=== PATIENT | female | born 1945 | race Caucasian/White ===

== ENCOUNTER 2019-09-07 16:51 | Inpatient (IN) | payer MEDICARE, OTHER ==
[~2019-09-07] VITALS: Ht 157.5 cm; Wt 112.5 kg
[~2019-09-07 16:51] MED LIST: ALBU2.5V8 INH; AMLO5TAB10 PO; BRIM5DRO2 OP; CALC-98 PO; CEPH500C PO; DORZ10DR6 EACHEYE; FURO80TA3 PO; GLUC1CAP48 PO; INSU100C SQ; INSU100I13 SQ; IPRA3AMP29 NEB; LISI10TA2 PO; METR45CR2 TP; MULT-658 PO; POTA20TA4 PO; TAFL1DRO OP; [UNRECOGNIZED DRUG - CODE] TP
--- NOTE | 2019-09-07 17:17 | PHYS DOC ---
Past Medical History Past Medical History: Asthma, Diabetes-Type II Additional Past Medical Histor: guillian-barre syndrome,retinopathy,skin ca, ercp,ITP (CANDIDO STEVENS APRN) Past Surgical History: Cholecystectomy, , Other Additional Past Surgical Histo: adenocarcinoma of endometrium,l knee,liver bx, (CANDIDO STEVENS APRN) Alcohol Use: None Drug Use: None (CANDIDO STEVENS APRN) Adult General Chief Complaint Chief Complaint: MECHANICAL FALL HPI HPI Patient is a 74 year old female who presents with with body aches, generalized weakness, and a fall that happened around 4:30 PM today. She states that her bilateral legs just gave out and she fell she's states that nothing hurts in the fall. She is worried that she might possibly have a urinary tract infection. She rates her pain as 3 out of 10 in severity. (CANDIDO STEVENS APRN) Review of Systems Review of Systems Constitutional: Reports hot and cold chills and generalized weakness. Eyes: Denies change in visual acuity, redness, or eye pain [] HENT: Denies nasal congestion or sore throat [] Respiratory: Denies cough or shortness of breath [] Cardiovascular: No additional information not addressed in HPI [] GI: Denies abdominal pain, nausea, vomiting, bloody stools or diarrhea [] : Denies dysuria or hematuria [] Musculoskeletal: Denies back pain or joint pain [] Integument: Denies rash or skin lesions [] Neurologic: Denies headache, focal weakness or sensory changes [] Endocrine: Denies polyuria or polydipsia [] Complete systems were reviewed and found to be within normal limits, except as documented in this note. (CANDIDO STEVENS APRN) Current Medications Current Medications Current Medications Medications (Trade) Dose Ordered Sig/Naye Start Time Stop Time Status Last Admin Dose Admin Ceftriaxone Sodium (Rocephin) 1 gm 1X STAT 09/07/19 18:04 09/07/19 18:07 DC 09/07/19 18:31 1 GM (PAULINE DOUGLAS MD) Allergies Allergies Allergies Coded Allergies Type Severity Reaction Last Updated Verified No Known Drug Allergies 04/28/18 No (PAULINE DOUGLAS MD) Physical Exam Physical Exam Constitutional: Well developed, well nourished, no acute distress, non-toxic appearance. [] HENT: Normocephalic, atraumatic, bilateral external ears normal, oropharynx moist, no oral exudates, nose normal. [] Eyes: PERRLA, EOMI, conjunctiva normal, no discharge. [] Neck: Normal range of motion, no tenderness, supple, no stridor. [] Cardiovascular:Heart rate regular rhythm, no murmur [] Lungs & Thorax: Bilateral breath sounds clear to auscultation [] Abdomen: Bowel sounds normal, soft, no tenderness, no masses, no pulsatile ma sses. [] Skin: Warm, dry, no erythema, no rash. [] Back: No tenderness, no CVA tenderness. [] Extremities: No tenderness, no cyanosis, no clubbing, ROM intact, no edema. [] Neurologic: Alert and oriented X 3, normal motor function, normal sensory function, no focal deficits noted. [] Psychologic: Affect normal, judgement normal, mood normal. [] (CANDIDO STEVENS APRN) Current Patient Data Vital Signs Vital Signs Date Time Temp Pulse Resp B/P (MAP) Pulse Ox O2 Delivery O2 Flow Rate FiO2 09/07/19 16:51 99.2 86 18 137/64 (88) 94 Room Air 99.2 (PAULINE DOUGLAS MD) Lab Values Laboratory Tests Test 09/07/19 16:54 09/07/19 17:01 09/07/19 17:38 Glucose (Fingerstick) 271 mg/dL (70-99) H Urine Collection Type U cath Urine Color [place] Urine Clarity Cloudy Urine pH 5.5 Urine Specific [place] 1.025 Urine Protein 100 mg/dL (NEG-TRACE) Urine Glucose (UA) Negative mg/dL (NEG) Urine Ketones (Stick) Trace mg/dL (NEG) Urine Blood Moderate (NEG) Urine Nitrite Negative (NEG) Urine Bilirubin Small (NEG) Urine Urobilinogen Dipstick 1.0 mg/dL (0.2 mg/dL) Urine Leukocyte Esterase Large (NEG) Urine RBC 3-5 /HPF (0-2) Urine WBC >40 /HPF (0-4) Urine Squamous Epithelial Cells Few /LPF Urine Bacteria Many /HPF (0-FEW) Urine Hyaline Casts Moderate /HPF Urine Mucus Mod /LPF White Blood Count 12.4 x10^3/uL (4.0-11.0) H Red Blood Count 5.03 x10^6/uL (3.50-5.40) Hemoglobin 13.7 g/dL (12.0-15.5) Hematocrit 42.1 % (36.0-47.0) Mean Corpuscular Volume 84 fL (79-100) Mean Corpuscular Hemoglobin 27 pg (25-35) Mean Corpuscular Hemoglobin Concent 33 g/dL (31-37) Red Cell Distribution Width 14.6 % (11.5-14.5) H Platelet Count 72 x10^3/uL (140-400) L Neutrophils (%) (Auto) 84 % (31-73) H Lymphocytes (%) (Auto) 10 % (24-48) L Monocytes (%) (Auto) 6 % (0-9) Eosinophils (%) (Auto) 0 % (0-3) Basophils (%) (Auto) 0 % (0-3) Neutrophils # (Auto) 10.4 x10^3/uL (1.8-7.7) H Lymphocytes # (Auto) 1.2 x10^3/uL (1.0-4.8) Monocytes # (Auto) 0.7 x10^3/uL (0.0-1.1) Eosinophils # (Auto) 0.0 x10^3/uL (0.0-0.7) Basophils # (Auto) 0.0 x10^3/uL (0.0-0.2) Sodium Level 136 mmol/L (136-145) Potassium Level 3.9 mmol/L (3.5-5.1) Chloride Level 98 mmol/L (98-107) Carbon Dioxide Level 30 mmol/L (21-32) Anion Gap 8 (6-14) Blood Urea Nitrogen 18 mg/dL (7-20) Creatinine 1.2 mg/dL (0.6-1.0) H Estimated GFR (Cockcroft-Gault) 43.8 BUN/Creatinine Ratio 15 (6-20) Glucose Level 275 mg/dL (70-99) H Lactic Acid Level 2.2 mmol/L (0.4-2.0) H Calcium Level 9.1 mg/dL (8.5-10.1) Magnesium Level 1.9 mg/dL (1.8-2.4) Total Bilirubin 1.5 mg/dL (0.2-1.0) H Aspartate Amino Transferase (AST) 12 U/L (15-37) L Alanine Aminotransferase (ALT) 13 U/L (14-59) L Alkaline Phosphatase 74 U/L (46-116) Total Protein 7.2 g/dL (6.4-8.2) Albumin 3.3 g/dL (3.4-5.0) L Albumin/Globulin Ratio 0.8 (1.0-1.7) L Laboratory Tests 09/07/19 17:38 Laboratory Tests 09/07/19 17:38 (PAULINE DOUGLAS MD) EKG EKG [] (CANDIDO STEVENS APRN) Radiology/Procedures Radiology/Procedures [][facility] [address] [place] [address] IMAGING REPORT Signed PATIENT: AMELIA LANGLEY ACCOUNT: [id number] : 1945 LOCATION: ER AGE: 74 SEX: F EXAM STATUS: REG ER ORD. PHYSICIAN: CANDIDO STEVENS APRN REASON: fever PROCEDURE: PORTABLE CHEST 1V Single view chest dated 09/07/2019. Comparison made to 04/28/2018. Clinical data indication: Fever. FINDINGS: Single upright portable exam performed. Heart and mediastinal contours are stable. Lungs are clear. No consolidation or pleural effusion. No pneumothorax. IMPRESSION: No evidence of focal pneumonia. Electronically signed by: Candido Guzmán MD (09/07/2019 6:03 PM) [id number] DICTATED and SIGNED BY: CANDIDO GUZMÁN MD DATE: 09/07/19 1803 (CANDIDO STEVENS APRN) Course & Med Decision Making Course & Med Decision Making Pertinent Labs and Imaging studies reviewed. (See chart for details) Will get labs, and chest x-ray. Labs shows a WBC of 12,000, Chest x-ray is unremarkable. Urine shows leukocytes and bacteria. Will treat with Rocephin. Offered to send patient home on Keflex or to admit to hospital. Patient asked to be admitted to hospital as feels to weak to safely be at home. Will page Dr. Garza for admission. Discussed with Dr. Garza who accepts admission. (CANDIDO STEVENS APRN) Course & Med Decision Making I was not involved in the care of this patient after 1800 on 09/07/2019. (PAULINE DOUGLAS MD) Dragon Disclaimer Dragon Disclaimer This electronic medical record was generated, in whole or in part, using a voice recognition dictation system. (CANDIDO STEVENS APRN) Departure Departure Impression: Primary Impression: UTI (urinary tract infection) Additional Impression: Generalized weakness Disposition: 09 ADMITTED INPATIENT Admitting Physician: ADIA (CANDIDO STEVENS APRN) Condition: STABLE Referrals: MARCK WOODRUFF MD (PCP) Problem Qualifiers CANDIDO STEVENS APRN Sep 07, 2019 17:17 PAULINE DOUGLAS MD Sep 08, 2019 10:13
[2019-09-07 17:27] LABS: BILIRUBIN,URINE SMALL (NEG); CLARITY,URINE CLOUDY; COLOR,URINE AMBER; NITRITE,URINE NEGATIVE (NEG); PH,URINE 5.5; PROTEIN,URINE 100 mg/dL (NEG-TRACE)
[2019-09-07 17:51] LABS: BASO % 0 % (0-3); EOS % 0 % (0-3); HEMATOCRIT 42.1 % (36.0-47.0); HEMOGLOBIN 13.7 g/dL (12.0-15.5); LYMPH # 1.2 x10^3/uL (1.0-4.8); LYMPH % 10 % (24-48); MEAN CORPUSCULAR HEMOGLOBIN 27 pg (25-35); MEAN CORPUSCULAR HGB CONC 33 g/dL (31-37); MEAN CORPUSCULAR VOLUME 84 fL (79-100); MONO # 0.7 x10^3/uL (0.0-1.1); MONO % 6 % (0-9); NEUT # 10.4 x10^3/uL (1.8-7.7); NEUT % 84 % (31-73); PLATELET COUNT 72 x10^3/uL (140-400); RED BLOOD COUNT 5.03 x10^6/uL (3.50-5.40); RED CELL DISTRIBUTION WIDTH 14.6 % (11.5-14.5); WHITE BLOOD COUNT 12.4 x10^3/uL (4.0-11.0)
[2019-09-07 17:57] LABS: HYALINE CASTS, URINE MODERATE /HPF; SQUAMOUS EPITHELIAL CELL,UR FEW /LPF
[2019-09-07 17:58] LABS: BACTERIA,URINE MANY /HPF (0-FEW); WBC,URINE >40 /HPF (0-4)
[2019-09-07] MEDS ORDERED: cefTRIAXone IV Push 1 GM VIAL. IVP STA (18:04)
--- NOTE | 2019-09-07 18:06 | RAD ---
Single view chest dated 09/07/2019. Comparison made to 04/28/2018. Clinical data indication: Fever. FINDINGS: Single upright portable exam performed. Heart and mediastinal contours are stable. Lungs are clear. No consolidation or pleural effusion. No pneumothorax. IMPRESSION: No evidence of focal pneumonia. Electronically signed by: Candido Guzmán MD (09/07/2019 6:03 PM) [facility]
[2019-09-07 18:07] LABS: CALCIUM 9.1 mg/dL (8.5-10.1); CREATININE 1.2 mg/dL (0.6-1.0); GFR 43.8; POTASSIUM 3.9 mmol/L (3.5-5.1)
[2019-09-07 18:13] LABS: ALBUMIN 3.3 g/dL (3.4-5.0); ALBUMIN/GLOBULIN RATIO 0.8 (1.0-1.7); TOTAL BILIRUBIN 1.5 mg/dL (0.2-1.0); TOTAL PROTEIN 7.2 g/dL (6.4-8.2)
[2019-09-07] MEDS ORDERED: IV NORMAL SALINE 500ML BAG 500 ML IV STA ×2 (18:28→18:49)
[2019-09-07] MEDS ORDERED: ONDANSETRON PF 4 MG/2 ML VIAL. IV PRN (19:00)
--- NOTE | 2019-09-07 19:28 | PDOC1 ---
History and Physical Date of Admission Date of Admission DATE: 09/07/19 TIME: 19:21 Identification/Chief Complaint Chief Complaint falls, weak Source Source: Caregiver, Chart review, Patient History of Present Illness History of Present Illness PCP dr Xiao, lives at home with has a walker at home, has been falling and had a non injury fall at home today. INCidental UTI on work up hence admitted, WBC 12, dirty urine, non toxic appearing,a febrile, creat 1,2 the rest LAbs ok Agreeable to PT and IV abx and admission Full code TRIAGE NOTE:PT TO ED VIA [facility] TO ER ROOM 20. EMS STATES PT HAD FALL TODAY, NO INJURY NO LOC. PT STATES SHE WAS IN THE BATHROOM AND HER KNEES BUCKLED. EMS STATES PT HAS INCREASING CONFUSION ABOUT PT HISTORY. PT ALERT AND ORIENTED X4 BUT FORGETFUL. PT HAS HX OF UTI. EMS STATES BG OF 108, PT AMBULATED W/CANE. PT DENIES RECENT FALLS BESIDES TODAY. DENIES URINARY SXS of UTI Past Medical History Cardiovascular: HTN Pulmonary: Bronchitis, COPD Endocrine: Diabetes Past Surgical History Past Surgical History: No pertinent history Family History Family History: High Cholestrol, Hypertension Social History Smoke: No ALCOHOL: none Drugs: None Current Problem List Problem List Problems Medical Problems: (1) Generalized weakness Status: Acute Current Medications Current Medications Current Medications Ceftriaxone Sodium (Rocephin) 1 gm 1X STAT IVP Last administered on 09/07/19at 18:31; Start 09/07/19 at 18:04; Stop 09/07/19 at 18:07; Status DC Sodium Chloride 500 ml @ 500 mls/hr 1X STAT IV Last administered on 09/07/19at 18:35; Start 09/07/19 at 18:28; Stop 09/07/19 at 19:27 Ondansetron HCl (Zofran) 4 mg PRN Q8HRS PRN IV NAUSEA/VOMITING; Start 09/07/19 at 19:00; Stop 09/08/19 at 18:59 Sodium Chloride 500 ml @ 500 mls/hr 1X STAT IV ; Start 09/07/19 at 18:49; Stop 09/07/19 at 19:48 Active Scripts Active Reported Hair Regrowth Treatment (Minoxidil) 180 Ml Solution 180 Ml TP Metrocream (Metronidazole) 45 Gm Cream..g. 1 [place] TP BID Proair Hfa Inhaler (Albuterol Sulfate) 8.5 Gm Hfa.aer.ad 1 Puff INH PRN Q4-6HRS PRN Duoneb 0.5-3(2.5) Mg/3 Ml (Albuterol/Ipratropium) 3 Ml Ampul.neb 3 Ml NEB TID Glucosamine & Chondroitin Cap (Gluc 2KCL/Chondr/Isra Hy/Hy Ac) 1 Each Capsule Each PO BID Calcium + Vitamin D Tablet (Calcium Carbonate/Vitamin D3) 1 Each Tablet 1 Each PO BID Centrum Silver Tablet (Multivits-Min/Fa/Lycopene/Lut) 1 Each Tablet 1 Each PO Combigan Eye Drops (Brimonidine Tartrate/Timolol) 5 Ml Drops 5 Ml OP BID Dorzolamide Hcl 10 Ml Drops 1 Drop EACHEYE BID Zioptan 0.0015% Eye Drops (Tafluprost/Pf) 1 Each Droperette 1 Each OP Potassium Chloride 20 Meq Tablet.er 20 Meq PO BID Furosemide 80 Mg Tablet 1 Tab PO DAILY Humalog (Insulin Lispro) 100 Unit/1 Ml Cartridge 20 Unit SQ TIDWMEALS Lantus Solostar (Insulin Glargine,Hum.rec.anlog) 100 Unit/1 Ml Insuln.pen 50 Unit SQ DAILY08 Lisinopril 10 Mg Tablet 1 Tab PO BID Amlodipine Besylate 5 Mg Tablet 5 Mg PO DAILY Allergies Allergies: Coded Allergies: No Known Drug Allergies (Unverified , 04/28/18) ROS General: No: Chills, Night Sweats, Fatigue, Malaise, Appetite, Other PSYCHOLOGICAL ROS: No: Anxiety, Behavioral Disorder, Concentration difficultie, Decreased libido, Depression, Disorientation, Hallucinations, Hostility, Irritablity, Memory difficulties, Mood Swings, Obsessive thoughts, Physical abuse, Sexual abuse, Sleep disturbances, Suicidal ideation, Other Eyes: No Blurry vision, No Decreased vision, No Double vision, No Dry eyes, No Excessive tearing, No Eye Pain, No Itchy Eyes, No Loss of vision, No Photophobia, No Scotomata, No Uses contacts, No Uses glasses, No Other HEENT: No: Heacaches, Visual Changes, Hearing change, Nasal congestion, Nasal discharge, Oral lesions, Sinus pain, Sore Throat, Epistaxis, Sneezing, Snoring, Tinnitus, Vertigo, Vocal changes, Other ALLERGY AND IMMUNOLOGY: No: Hives, Insect Bite Sensitivity, Itchy/Watery Eyes, Nasal Congestion, Post Nasal Drip, Seasonal Allergies, Other Hematological and Lymphatic: No: Bleeding Problems, Blood Clots, Blood Transfusions, Brusing, Night Sweats, Pallor, Swollen Lymph Nodes, Other ENDOCRINE: No: Breast Changes, Galactorrhea, Hair Pattern Changes, Hot Flashes, Malaise/lethargy, Mood Swings, Palpitations, Polydipsia/polyuria, Skin Changes, Temperature Intolerance, Unexpected Weight Changes, Other Breast: No New/Changing Breast Lumps, No Nipple changes, No Nipple discharge, No Other Respiratory: No: Cough, Hemoptysis, Orthopnea, Pleuritic Pain, Shortness of breath, SOB with excertion, Sputum Changes, Stridor, Tachypnea, Wheezing, Other Cardiovascular: No Chest Pain, No Palpitations, No Orthopnea, No Paroxysmal Noc. Dyspnea, No Edema, No Lt Headedness, No Other Gastrointestinal: No Nausea, No Vomiting, No Abdominal Pain, No Diarrhea, No Constipation, No Melena, No Hematochezia, No Other Genitourinary: No Dysuria, No Frequency, No Incontinence, No Hematuria, No Retention, No Discharge, No Urgency, No Pain, No Flank Pain, No Other, No , No , No , No , No , No , No Musculoskeletal: Yes Other (wak general) Physical Exam General: Alert, Oriented X3, Cooperative, No acute distress HEENT: Atraumatic, PERRLA, EOMI Lungs: Clear to auscultation, Normal air movement Heart: S1S2, RRR, no thrills, no rubs, no gallops, no murmurs Cardiovascular: S1 Breasts: Normal, Rt breast nml w/o mass, Lt breast nml w/o mass, Nipples normal Abdomen: Normal bowel sounds, Soft, No tenderness, No hepatosplenomegaly, No masses Rectal Exam: not examined PELVIC: Nml ext genitalia Extremities: No clubbing, No cyanosis, No edema, Normal pulses, No tenderness/swelling Skin: No rashes, No breakdown, No significant lesion Neuro: Normal gait, Normal speech, Strength at 5/5 X4 ext, Normal tone, Sensation intact, Cranial nerves 3-12 NL, Reflexes 2+ Vitals Vitals Vital Signs Date Time Temp Pulse Resp B/P (MAP) Pulse Ox O2 Delivery O2 Flow Rate FiO2 09/07/19 16:51 99.2 86 18 137/64 (88) 94 Room Air 99.2 Labs Labs Laboratory Tests Test 09/07/19 16:54 09/07/19 17:01 09/07/19 17:38 Glucose (Fingerstick) 271 mg/dL (70-99) Urine Collection Type U cath Urine Color [place] Urine Clarity Cloudy Urine pH 5.5 Urine Specific [place] 1.025 Urine Protein 100 mg/dL (NEG-TRACE) Urine Glucose (UA) Negative mg/dL (NEG) Urine Ketones (Stick) Trace mg/dL (NEG) Urine Blood Moderate (NEG) Urine Nitrite Negative (NEG) Urine Bilirubin Small (NEG) Urine Urobilinogen Dipstick 1.0 mg/dL (0.2 mg/dL) Urine Leukocyte Esterase Large (NEG) Urine RBC 3-5 /HPF (0-2) Urine WBC >40 /HPF (0-4) Urine Squamous Epithelial Cells Few /LPF Urine Bacteria Many /HPF (0-FEW) Urine Hyaline Casts Moderate /HPF Urine Mucus Mod /LPF White Blood Count 12.4 x10^3/uL (4.0-11.0) Red Blood Count 5.03 x10^6/uL (3.50-5.40) Hemoglobin 13.7 g/dL (12.0-15.5) Hematocrit 42.1 % (36.0-47.0) Mean Corpuscular Volume 84 fL (79-100) Mean Corpuscular Hemoglobin 27 pg (25-35) Mean Corpuscular Hemoglobin Concent 33 g/dL (31-37) Red Cell Distribution Width 14.6 % (11.5-14.5) Platelet Count 72 x10^3/uL (140-400) Neutrophils (%) (Auto) 84 % (31-73) Lymphocytes (%) (Auto) 10 % (24-48) Monocytes (%) (Auto) 6 % (0-9) Eosinophils (%) (Auto) 0 % (0-3) Basophils (%) (Auto) 0 % (0-3) Neutrophils # (Auto) 10.4 x10^3/uL (1.8-7.7) Lymphocytes # (Auto) 1.2 x10^3/uL (1.0-4.8) Monocytes # (Auto) 0.7 x10^3/uL (0.0-1.1) Eosinophils # (Auto) 0.0 x10^3/uL (0.0-0.7) Basophils # (Auto) 0.0 x10^3/uL (0.0-0.2) Sodium Level 136 mmol/L (136-145) Potassium Level 3.9 mmol/L (3.5-5.1) Chloride Level 98 mmol/L (98-107) Carbon Dioxide Level 30 mmol/L (21-32) Anion Gap 8 (6-14) Blood Urea Nitrogen 18 mg/dL (7-20) Creatinine 1.2 mg/dL (0.6-1.0) Estimated GFR (Cockcroft-Gault) 43.8 BUN/Creatinine Ratio 15 (6-20) Glucose Level 275 mg/dL (70-99) Lactic Acid Level 2.2 mmol/L (0.4-2.0) Calcium Level 9.1 mg/dL (8.5-10.1) Magnesium Level 1.9 mg/dL (1.8-2.4) Total Bilirubin 1.5 mg/dL (0.2-1.0) Aspartate Amino Transf (AST/SGOT) 12 U/L (15-37) Alanine Aminotransferase (ALT/SGPT) 13 U/L (14-59) Alkaline Phosphatase 74 U/L (46-116) Total Protein 7.2 g/dL (6.4-8.2) Albumin 3.3 g/dL (3.4-5.0) Albumin/Globulin Ratio 0.8 (1.0-1.7) Laboratory Tests Test 09/07/19 16:54 09/07/19 17:01 09/07/19 17:38 Glucose (Fingerstick) 271 mg/dL (70-99) Urine Collection Type U cath Urine Color [place] Urine Clarity Cloudy Urine pH 5.5 Urine Specific [place] 1.025 Urine Protein 100 mg/dL (NEG-TRACE) Urine Glucose (UA) Negative mg/dL (NEG) Urine Ketones (Stick) Trace mg/dL (NEG) Urine Blood Moderate (NEG) Urine Nitrite Negative (NEG) Urine Bilirubin Small (NEG) Urine Urobilinogen Dipstick 1.0 mg/dL (0.2 mg/dL) Urine Leukocyte Esterase Large (NEG) Urine RBC 3-5 /HPF (0-2) Urine WBC >40 /HPF (0-4) Urine Squamous Epithelial Cells Few /LPF Urine Bacteria Many /HPF (0-FEW) Urine Hyaline Casts Moderate /HPF Urine Mucus Mod /LPF White Blood Count 12.4 x10^3/uL (4.0-11.0) Red Blood Count 5.03 x10^6/uL (3.50-5.40) Hemoglobin 13.7 g/dL (12.0-15.5) Hematocrit 42.1 % (36.0-47.0) Mean Corpuscular Volume 84 fL (79-100) Mean Corpuscular Hemoglobin 27 pg (25-35) Mean Corpuscular Hemoglobin Concent 33 g/dL (31-37) Red Cell Distribution Width 14.6 % (11.5-14.5) Platelet Count 72 x10^3/uL (140-400) Neutrophils (%) (Auto) 84 % (31-73) Lymphocytes (%) (Auto) 10 % (24-48) Monocytes (%) (Auto) 6 % (0-9) Eosinophils (%) (Auto) 0 % (0-3) Basophils (%) (Auto) 0 % (0-3) Neutrophils # (Auto) 10.4 x10^3/uL (1.8-7.7) Lymphocytes # (Auto) 1.2 x10^3/uL (1.0-4.8) Monocytes # (Auto) 0.7 x10^3/uL (0.0-1.1) Eosinophils # (Auto) 0.0 x10^3/uL (0.0-0.7) Basophils # (Auto) 0.0 x10^3/uL (0.0-0.2) Sodium Level 136 mmol/L (136-145) Potassium Level 3.9 mmol/L (3.5-5.1) Chloride Level 98 mmol/L (98-107) Carbon Dioxide Level 30 mmol/L (21-32) Anion Gap 8 (6-14) Blood Urea Nitrogen 18 mg/dL (7-20) Creatinine 1.2 mg/dL (0.6-1.0) Estimated GFR (Cockcroft-Gault) 43.8 BUN/Creatinine Ratio 15 (6-20) Glucose Level 275 mg/dL (70-99) Lactic Acid Level 2.2 mmol/L (0.4-2.0) Calcium Level 9.1 mg/dL (8.5-10.1) Magnesium Level 1.9 mg/dL (1.8-2.4) Total Bilirubin 1.5 mg/dL (0.2-1.0) Aspartate Amino Transf (AST/SGOT) 12 U/L (15-37) Alanine Aminotransferase (ALT/SGPT) 13 U/L (14-59) Alkaline Phosphatase 74 U/L (46-116) Total Protein 7.2 g/dL (6.4-8.2) Albumin 3.3 g/dL (3.4-5.0) Albumin/Globulin Ratio 0.8 (1.0-1.7) VTE Prophylaxis Ordered VTE Prophylaxis Devices: Yes VTE Pharmacological Prophylaxi: Yes Assessment/Plan Assessment/Plan incidental UTI in a Diabetic DM 2 on insuln Obesity BMI 45 GEn weakness NOn injury falls at home HTN, lidpis - etc chronci stable PLAn: NOn tele bed ok 2 MN Rocephin, urine cx, PT OT Check hgba1c SSI high dose I reconciled home emds Ambulate ad skye wth fall risk DM diet FULL CODE seen at ER RUY CABEZAS MD Sep 07, 2019 19:28
[2019-09-07] MEDS ORDERED: CALCIUM CARBONATE 500 MG TAB.CHEW PO PRN (19:30)
[2019-09-07] MEDS ORDERED: ONDANSETRON PF 4 MG/2 ML VIAL. IVP PRN (19:30)
[2019-09-07] MEDS ORDERED: ALBUTEROL SULFATE 2.5 MG/3 ML NEBU. INH PRN (19:30)
[2019-09-07] MEDS ORDERED: DEXTROSE 50% 25 GM / 50ML DISP.SYRIN. IV PRN (19:30)
[2019-09-07] MEDS ORDERED: TEMAZEPAM 7.5 MG CAPSULE PO PRN (19:30)
[2019-09-07 20:15] VITALS: BP 163/67
--- NOTE | 2019-09-07 20:15 | NUR ---
The patient, AMELIA LANGLEY, 74 y/o, F admitted by RUY CABEZAS MD, was given written information regarding hospital policies, unit procedures and contact persons. Valuables were checked and left with her.
[2019-09-07] MEDS ORDERED: NON FORMULARY ITEM (Brimonidine Tartrate/Timolol (Combigan Eye Drops) 5 ML) OP SCH (21:00)
[2019-09-07] MEDS ORDERED: metroNIDAZOLE 0.75% TOPICAL 1 APP TUBE TP SCH (21:00)
[2019-09-07] MEDS: IPRATRPIUM/ALBUTEROL 0.5/2.5MG 3 ML NEBU. NEB SCH (22:15)
[2019-09-07] MEDS: LISINOPRIL 10 MG TABLET PO SCH (22:42)
[2019-09-07] MEDS: BRIMONIDINE 0.2% OPHTH SOLUTION 5ML BOTTLE. OU SCH (22:44)
[2019-09-07] MEDS: DORZOLAMIDE 2% OPHTH SOLUTION 10ML BOTTLE. OU SCH (22:45)
[2019-09-07] MEDS: TIMOLOL 0.5% OPHTH SOLUTION 5ML BOTTLE. OU SCH (22:46)
[2019-09-07] MEDS: INSULIN LISPRO 300 UNITS/3 ML VIAL. SQ SCH (22:54)
[2019-09-07 23:00] VITALS: BP 120/51
[2019-09-08 03:00] VITALS: BP 112/51
[2019-09-08 04:25] LABS: CALCIUM 8.9 mg/dL (8.5-10.1); GFR 54.1; POTASSIUM 3.7 mmol/L (3.5-5.1)
[2019-09-08] MEDS ORDERED: metroNIDAZOLE 0.75% TOPICAL 1 APP TUBE TP PRN (05:00)
[2019-09-08 07:00] VITALS: BP 122/51
[2019-09-08] MEDS: IPRATRPIUM/ALBUTEROL 0.5/2.5MG 3 ML NEBU. NEB SCH ×3 (07:30→21:00)
[2019-09-08] MEDS: CALCIUM CARB/VIT D3 500/200 TABLET. PO SCH ×2 (08:21→17:45)
[2019-09-08] MEDS: MULTIVITAMIN with MINERAL TABLET. PO SCH (08:21)
[2019-09-08] MEDS: POTASSIUM CHLORIDE 20 MEQ TABLET.ER. PO SCH ×2 (08:21→17:46)
[2019-09-08] MEDS: DORZOLAMIDE 2% OPHTH SOLUTION 10ML BOTTLE. OU SCH ×2 (08:23→21:45)
[2019-09-08] MEDS: BRIMONIDINE 0.2% OPHTH SOLUTION 5ML BOTTLE. OU SCH ×2 (08:23→21:51)
[2019-09-08] MEDS: INSULIN GLARGINE SYRINGE. SQ SCH (08:30)
[2019-09-08] MEDS: INSULIN LISPRO 300 UNITS/3 ML VIAL. SQ SCH ×6 (08:31→18:00)
[2019-09-08] MEDS: LISINOPRIL 10 MG TABLET PO SCH ×2 (08:34→21:46)
[2019-09-08] MEDS: FUROSEMIDE 80 MG TABLET. PO SCH (08:34)
[2019-09-08] MEDS: amLODIPine BESYLATE 5 MG TABLET PO SCH (08:35)
[2019-09-08] MEDS: TIMOLOL 0.5% OPHTH SOLUTION 5ML BOTTLE. OU SCH ×2 (09:00→22:13)
[2019-09-08 11:00] VITALS: BP 107/53
--- NOTE | 2019-09-08 11:20 | PDOC ---
PROGRESS NOTES History of Present Illness History of Present Illness VTE Prophylaxis Ordered VTE Prophylaxis Devices: Yes VTE Pharmacological Prophylaxi: Yes IMPRESSION UTI LEUKOCYTOSIS SIRS DM 2 on insuln Obesity BMI 45 GEn weakness HIGH FALL RISK NOn injury falls at home HTN, lidpis - etc chronci stable THROMBOCYTOPENIA PLAn: NOn tele bed ADMIT 2 MN IV Rocephin, urine cx, PT OT Check hgba1c SSI high dose home MEDS Ambulate ad skye wth fall risk DM diet ACCUCHECKS ABD SONO CBC TODAY Vitals Vitals Vital Signs Date Time Temp Pulse Resp B/P (MAP) Pulse Ox O2 Delivery O2 Flow Rate FiO2 09/08/19 08:35 76 122/51 09/08/19 07:30 95 Room Air 09/08/19 07:00 97.5 20 97.5 Physical Exam Physical Exam TREMOR General: Alert, Oriented X3, Cooperative, No acute distress Heart: Regular rate, Normal S1 Lungs: Clear Abdomen: Normal bowel sounds, Soft, No tenderness, No hepatosplenomegaly, No masses Extremities: No clubbing, No cyanosis, No edema, Normal pulses, No tenderness/swelling Skin: No rashes, No breakdown, No significant lesion Labs LABS Laboratory Tests Test 09/07/19 16:54 09/07/19 17:01 09/07/19 17:38 09/07/19 20:58 Glucose (Fingerstick) 271 mg/dL (70-99) 284 mg/dL (70-99) Urine Collection Type U cath Urine Color [place] Urine Clarity Cloudy Urine pH 5.5 Urine Specific [place] 1.025 Urine Protein 100 mg/dL (NEG-TRACE) Urine Glucose (UA) Negative mg/dL (NEG) Urine Ketones (Stick) Trace mg/dL (NEG) Urine Blood Moderate (NEG) Urine Nitrite Negative (NEG) Urine Bilirubin Small (NEG) Urine Urobilinogen Dipstick 1.0 mg/dL (0.2 mg/dL) Urine Leukocyte Esterase Large (NEG) Urine RBC 3-5 /HPF (0-2) Urine WBC >40 /HPF (0-4) Urine Squamous Epithelial Cells Few /LPF Urine Bacteria Many /HPF (0-FEW) Urine Hyaline Casts Moderate /HPF Urine Mucus Mod /LPF White Blood Count 12.4 x10^3/uL (4.0-11.0) Red Blood Count 5.03 x10^6/uL (3.50-5.40) Hemoglobin 13.7 g/dL (12.0-15.5) Hematocrit 42.1 % (36.0-47.0) Mean Corpuscular Volume 84 fL (79-100) Mean Corpuscular Hemoglobin 27 pg (25-35) Mean Corpuscular Hemoglobin Concent 33 g/dL (31-37) Red Cell Distribution Width 14.6 % (11.5-14.5) Platelet Count 72 x10^3/uL (140-400) Neutrophils (%) (Auto) 84 % (31-73) Lymphocytes (%) (Auto) 10 % (24-48) Monocytes (%) (Auto) 6 % (0-9) Eosinophils (%) (Auto) 0 % (0-3) Basophils (%) (Auto) 0 % (0-3) Neutrophils # (Auto) 10.4 x10^3/uL (1.8-7.7) Lymphocytes # (Auto) 1.2 x10^3/uL (1.0-4.8) Monocytes # (Auto) 0.7 x10^3/uL (0.0-1.1) Eosinophils # (Auto) 0.0 x10^3/uL (0.0-0.7) Basophils # (Auto) 0.0 x10^3/uL (0.0-0.2) Sodium Level 136 mmol/L (136-145) Potassium Level 3.9 mmol/L (3.5-5.1) Chloride Level 98 mmol/L (98-107) Carbon Dioxide Level 30 mmol/L (21-32) Anion Gap 8 (6-14) Blood Urea Nitrogen 18 mg/dL (7-20) Creatinine 1.2 mg/dL (0.6-1.0) Estimated GFR (Cockcroft-Gault) 43.8 BUN/Creatinine Ratio 15 (6-20) Glucose Level 275 mg/dL (70-99) Lactic Acid Level 2.2 mmol/L (0.4-2.0) Calcium Level 9.1 mg/dL (8.5-10.1) Magnesium Level 1.9 mg/dL (1.8-2.4) Total Bilirubin 1.5 mg/dL (0.2-1.0) Aspartate Amino Transf (AST/SGOT) 12 U/L (15-37) Alanine Aminotransferase (ALT/SGPT) 13 U/L (14-59) Alkaline Phosphatase 74 U/L (46-116) Total Protein 7.2 g/dL (6.4-8.2) Albumin 3.3 g/dL (3.4-5.0) Albumin/Globulin Ratio 0.8 (1.0-1.7) Test 09/07/19 21:20 09/08/19 03:05 09/08/19 07:42 Lactic Acid Level 2.5 mmol/L (0.4-2.0) Sodium Level 136 mmol/L (136-145) Potassium Level 3.7 mmol/L (3.5-5.1) Chloride Level 100 mmol/L (98-107) Carbon Dioxide Level 28 mmol/L (21-32) Anion Gap 8 (6-14) Blood Urea Nitrogen 18 mg/dL (7-20) Creatinine 1.0 mg/dL (0.6-1.0) Estimated GFR (Cockcroft-Gault) 54.1 Glucose Level 242 mg/dL (70-99) Calcium Level 8.9 mg/dL (8.5-10.1) Glucose (Fingerstick) 228 mg/dL (70-99) Assessment and Plan Assessmemt and Plan Problems Medical Problems: (1) Generalized weakness Status: Acute Comment Review of Relevant I have reviewed the following items heidi (where applicable) has been applied. Labs Laboratory Tests Test 09/07/19 16:54 09/07/19 17:01 09/07/19 17:38 09/07/19 20:58 Glucose (Fingerstick) 271 mg/dL (70-99) 284 mg/dL (70-99) Urine Collection Type U cath Urine Color [place] Urine Clarity Cloudy Urine pH 5.5 Urine Specific [place] 1.025 Urine Protein 100 mg/dL (NEG-TRACE) Urine Glucose (UA) Negative mg/dL (NEG) Urine Ketones (Stick) Trace mg/dL (NEG) Urine Blood Moderate (NEG) Urine Nitrite Negative (NEG) Urine Bilirubin Small (NEG) Urine Urobilinogen Dipstick 1.0 mg/dL (0.2 mg/dL) Urine Leukocyte Esterase Large (NEG) Urine RBC 3-5 /HPF (0-2) Urine WBC >40 /HPF (0-4) Urine Squamous Epithelial Cells Few /LPF Urine Bacteria Many /HPF (0-FEW) Urine Hyaline Casts Moderate /HPF Urine Mucus Mod /LPF White Blood Count 12.4 x10^3/uL (4.0-11.0) Red Blood Count 5.03 x10^6/uL (3.50-5.40) Hemoglobin 13.7 g/dL (12.0-15.5) Hematocrit 42.1 % (36.0-47.0) Mean Corpuscular Volume 84 fL (79-100) Mean Corpuscular Hemoglobin 27 pg (25-35) Mean Corpuscular Hemoglobin Concent 33 g/dL (31-37) Red Cell Distribution Width 14.6 % (11.5-14.5) Platelet Count 72 x10^3/uL (140-400) Neutrophils (%) (Auto) 84 % (31-73) Lymphocytes (%) (Auto) 10 % (24-48) Monocytes (%) (Auto) 6 % (0-9) Eosinophils (%) (Auto) 0 % (0-3) Basophils (%) (Auto) 0 % (0-3) Neutrophils # (Auto) 10.4 x10^3/uL (1.8-7.7) Lymphocytes # (Auto) 1.2 x10^3/uL (1.0-4.8) Monocytes # (Auto) 0.7 x10^3/uL (0.0-1.1) Eosinophils # (Auto) 0.0 x10^3/uL (0.0-0.7) Basophils # (Auto) 0.0 x10^3/uL (0.0-0.2) Sodium Level 136 mmol/L (136-145) Potassium Level 3.9 mmol/L (3.5-5.1) Chloride Level 98 mmol/L (98-107) Carbon Dioxide Level 30 mmol/L (21-32) Anion Gap 8 (6-14) Blood Urea Nitrogen 18 mg/dL (7-20) Creatinine 1.2 mg/dL (0.6-1.0) Estimated GFR (Cockcroft-Gault) 43.8 BUN/Creatinine Ratio 15 (6-20) Glucose Level 275 mg/dL (70-99) Lactic Acid Level 2.2 mmol/L (0.4-2.0) Calcium Level 9.1 mg/dL (8.5-10.1) Magnesium Level 1.9 mg/dL (1.8-2.4) Total Bilirubin 1.5 mg/dL (0.2-1.0) Aspartate Amino Transf (AST/SGOT) 12 U/L (15-37) Alanine Aminotransferase (ALT/SGPT) 13 U/L (14-59) Alkaline Phosphatase 74 U/L (46-116) Total Protein 7.2 g/dL (6.4-8.2) Albumin 3.3 g/dL (3.4-5.0) Albumin/Globulin Ratio 0.8 (1.0-1.7) Test 09/07/19 21:20 09/08/19 03:05 09/08/19 07:42 Lactic Acid Level 2.5 mmol/L (0.4-2.0) Sodium Level 136 mmol/L (136-145) Potassium Level 3.7 mmol/L (3.5-5.1) Chloride Level 100 mmol/L (98-107) Carbon Dioxide Level 28 mmol/L (21-32) Anion Gap 8 (6-14) Blood Urea Nitrogen 18 mg/dL (7-20) Creatinine 1.0 mg/dL (0.6-1.0) Estimated GFR (Cockcroft-Gault) 54.1 Glucose Level 242 mg/dL (70-99) Calcium Level 8.9 mg/dL (8.5-10.1) Glucose (Fingerstick) 228 mg/dL (70-99) Laboratory Tests Test 09/07/19 16:54 09/07/19 17:01 09/07/19 17:38 09/07/19 20:58 Glucose (Fingerstick) 271 mg/dL (70-99) 284 mg/dL (70-99) Urine Collection Type U cath Urine Color [place] Urine Clarity Cloudy Urine pH 5.5 Urine Specific [place] 1.025 Urine Protein 100 mg/dL (NEG-TRACE) Urine Glucose (UA) Negative mg/dL (NEG) Urine Ketones (Stick) Trace mg/dL (NEG) Urine Blood Moderate (NEG) Urine Nitrite Negative (NEG) Urine Bilirubin Small (NEG) Urine Urobilinogen Dipstick 1.0 mg/dL (0.2 mg/dL) Urine Leukocyte Esterase Large (NEG) Urine RBC 3-5 /HPF (0-2) Urine WBC >40 /HPF (0-4) Urine Squamous Epithelial Cells Few /LPF Urine Bacteria Many /HPF (0-FEW) Urine Hyaline Casts Moderate /HPF Urine Mucus Mod /LPF White Blood Count 12.4 x10^3/uL (4.0-11.0) Red Blood Count 5.03 x10^6/uL (3.50-5.40) Hemoglobin 13.7 g/dL (12.0-15.5) Hematocrit 42.1 % (36.0-47.0) Mean Corpuscular Volume 84 fL (79-100) Mean Corpuscular Hemoglobin 27 pg (25-35) Mean Corpuscular Hemoglobin Concent 33 g/dL (31-37) Red Cell Distribution Width 14.6 % (11.5-14.5) Platelet Count 72 x10^3/uL (140-400) Neutrophils (%) (Auto) 84 % (31-73) Lymphocytes (%) (Auto) 10 % (24-48) Monocytes (%) (Auto) 6 % (0-9) Eosinophils (%) (Auto) 0 % (0-3) Basophils (%) (Auto) 0 % (0-3) Neutrophils # (Auto) 10.4 x10^3/uL (1.8-7.7) Lymphocytes # (Auto) 1.2 x10^3/uL (1.0-4.8) Monocytes # (Auto) 0.7 x10^3/uL (0.0-1.1) Eosinophils # (Auto) 0.0 x10^3/uL (0.0-0.7) Basophils # (Auto) 0.0 x10^3/uL (0.0-0.2) Sodium Level 136 mmol/L (136-145) Potassium Level 3.9 mmol/L (3.5-5.1) Chloride Level 98 mmol/L (98-107) Carbon Dioxide Level 30 mmol/L (21-32) Anion Gap 8 (6-14) Blood Urea Nitrogen 18 mg/dL (7-20) Creatinine 1.2 mg/dL (0.6-1.0) Estimated GFR (Cockcroft-Gault) 43.8 BUN/Creatinine Ratio 15 (6-20) Glucose Level 275 mg/dL (70-99) Lactic Acid Level 2.2 mmol/L (0.4-2.0) Calcium Level 9.1 mg/dL (8.5-10.1) Magnesium Level 1.9 mg/dL (1.8-2.4) Total Bilirubin 1.5 mg/dL (0.2-1.0) Aspartate Amino Transf (AST/SGOT) 12 U/L (15-37) Alanine Aminotransferase (ALT/SGPT) 13 U/L (14-59) Alkaline Phosphatase 74 U/L (46-116) Total Protein 7.2 g/dL (6.4-8.2) Albumin 3.3 g/dL (3.4-5.0) Albumin/Globulin Ratio 0.8 (1.0-1.7) Test 09/07/19 21:20 09/08/19 03:05 09/08/19 07:42 Lactic Acid Level 2.5 mmol/L (0.4-2.0) Sodium Level 136 mmol/L (136-145) Potassium Level 3.7 mmol/L (3.5-5.1) Chloride Level 100 mmol/L (98-107) Carbon Dioxide Level 28 mmol/L (21-32) Anion Gap 8 (6-14) Blood Urea Nitrogen 18 mg/dL (7-20) Creatinine 1.0 mg/dL (0.6-1.0) Estimated GFR (Cockcroft-Gault) 54.1 Glucose Level 242 mg/dL (70-99) Calcium Level 8.9 mg/dL (8.5-10.1) Glucose (Fingerstick) 228 mg/dL (70-99) Medications Current Medications Ceftriaxone Sodium (Rocephin) 1 gm 1X STAT IVP Last administered on 09/07/19at 18:31; Start 09/07/19 at 18:04; Stop 09/07/19 at 18:07; Status DC Sodium Chloride 500 ml @ 500 mls/hr 1X STAT IV Last administered on 09/07/19at 18:35; Start 09/07/19 at 18:28; Stop 09/07/19 at 19:27; Status DC Ondansetron HCl (Zofran) 4 mg PRN Q8HRS PRN IV NAUSEA/VOMITING; Start 09/07/19 at 19:00; Stop 09/07/19 at 19:28; Status DC Sodium Chloride 500 ml @ 500 mls/hr 1X STAT IV Last administered on 09/07/19at 22:57; Start 09/07/19 at 18:49; Stop 09/07/19 at 19:48; Status DC Ceftriaxone Sodium (Rocephin) 1 gm Q24H IVP ; Start 09/08/19 at 18:00 Ondansetron HCl (Zofran) 4 mg PRN Q6HRS PRN IVP NAUSEA/VOMITING; Start 09/07/19 at 19:30 Temazepam (Restoril) 7.5 mg PRN QHS PRN PO INSOMNIA Last administered on 09/07/19 22:41; Start 09/07/19 at 19:30 Calcium Carbonate/ Glycine (Tums) 500 mg PRN AFTMEALHC PRN PO INDIGESTION; Start 09/07/19 at 19:30 Albuterol Sulfate (Ventolin Neb Soln) 2.5 mg PRN QID PRN INH SHORTNESS OF BREATH; Start 09/07/19 at 19:30 Amlodipine Besylate (Norvasc) 5 mg DAILY PO Last administered on 09/08/19 0 8:35; Start 09/08/19 at 09:00 Dorzolamide HCl (Trusopt) 1 drop BID OU Last administered on 09/08/19 08:23; Start 09/07/19 at 21:00 Furosemide (Lasix) 80 mg DAILY PO Last administered on 09/08/19 08:34; Start 09/08/19 at 09:00 Albuterol/ Ipratropium (Duoneb) 3 ml TID NEB Last administered on 09/08/19 07:30; Start 09/07/19 at 21:00 Lisinopril (Prinivil) 10 mg BID PO Last administered on 09/08/19 08:34; Start 09/07/19 at 21:00 Non-Formulary Medication (Brimonidine Tartrate/Timolol (Combigan Eye Drops)) 5 ml BID OP ; Start 09/07/19 at 21:00; Status UNV Calcium/Vitamin D (Oscal D 500mg/ 200uts) 1 tab BIDWMEALS PO Last administered on 09/08/19at 08:21; Start 09/08/19 at 08:00 Insulin Glargine (Lantus Syringe) 50 unit DAILY08 SQ Last administered on 08:30; Start 09/08/19 at 08:00 Insulin Human Lispro (HumaLOG) 20 units TIDWMEALS SQ Last administered on 09/08/19at 08:31; Start 09/07/19 at 19:00 Metronidazole (Nydamax) 1 suyapa BID TP ; Start 09/07/19 at 21:00; Stop 09/08/19 at 04:48; Status DC Potassium Chloride (Klor-Con) 20 meq BIDWMEALS PO Last administered on 09/08/19 08:21; Start 09/08/19 at 08:00 Multivitamins (Thera M Plus) 1 tab DAILY PO Last administered on 09/08/19at 08:21; Start 09/08/19 at 09:00 Insulin Human Lispro (HumaLOG) 0-9 UNITS TIDWMEALS SQ Last administered on 09/08/19at 08:32; Start 09/08/19 at 08:00 Dextrose (Dextrose 50%-Water Syringe) 12.5 gm PRN Q15MIN PRN IV SEE COMMENTS; Start 09/07/19 at 19:30 Brimonidine Tartrate (Alphagan) 1 drop BID OU Last administered on 09/08/19at 08:23; Start 09/07/19 at 21:00 Timolol Maleate (Timoptic 0.5% Ophth) 1 drop BID OU Last administered on 09/07/19at 22:46; Start 09/07/19 at 21:00 Metronidazole (Nydamax) 1 suyapa PRN BID PRN TP DRY SKIN / SCALING; Start 09/08/19 at 05:00 Active Scripts Active Reported Hair Regrowth Treatment (Minoxidil) 180 Ml Solution 180 Ml TP Metrocream (Metronidazole) 45 Gm Cream..g. 1 Suyapa TP BID Proair Hfa Inhaler (Albuterol Sulfate) 8.5 Gm Hfa.aer.ad 1 Puff INH PRN Q4-6HRS PRN Duoneb 0.5-3(2.5) Mg/3 Ml (Albuterol/Ipratropium) 3 Ml Ampul.neb 3 Ml NEB TID Glucosamine & Chondroitin Cap (Gluc 2KCL/Chondr/Isra Hy/Hy Ac) 1 Each Capsule Each PO BID Calcium + Vitamin D Tablet (Calcium Carbonate/Vitamin D3) 1 Each Tablet 1 Each PO BID Centrum Silver Tablet (Multivits-Min/Fa/Lycopene/Lut) 1 Each Tablet 1 Each PO Combigan Eye Drops (Brimonidine Tartrate/Timolol) 5 Ml Drops 5 Ml OP BID Dorzolamide Hcl 10 Ml Drops 1 Drop EACHEYE BID Zioptan 0.0015% Eye Drops (Tafluprost/Pf) 1 Each Droperette 1 Each OP Potassium Chloride 20 Meq Tablet.er 20 Meq PO BID Furosemide 80 Mg Tablet 1 Tab PO DAILY Humalog (Insulin Lispro) 100 Unit/1 Ml Cartridge 20 Unit SQ TIDWMEALS Lantus Solostar (Insulin Glargine,Hum.rec.anlog) 100 Unit/1 Ml Insuln.pen 50 Unit SQ DAILY08 Lisinopril 10 Mg Tablet 1 Tab PO BID Amlodipine Besylate 5 Mg Tablet 5 Mg PO DAILY Vitals/I & O Vital Sign - Last 24 Hours 09/07/19 09/07/19 09/07/19 09/07/19 16:51 19:30 20:15 20:15 Temp 99.2 98.4 99.2 98.4 Pulse 86 91 92 Resp 18 16 20 B/P (MAP) 137/64 (88) 163/67 (99) Pulse Ox 94 94 95 O2 Delivery Room Air Room Air Room Air 09/07/19 09/07/19 09/07/19 09/08/19 22:17 22:42 23:00 03:00 Temp 98.1 98.0 98.1 98.0 Pulse 92 90 86 Resp 20 20 B/P (MAP) 163/67 120/51 (74) 112/51 (71) Pulse Ox 94 93 97 O2 Delivery Room Air Room Air Room Air 09/08/19 09/08/19 09/08/19 09/08/19 07:00 07:30 08:34 08:35 Temp 97.5 97.5 Pulse 76 76 76 Resp 20 B/P (MAP) 122/51 (74) 122/51 122/51 Pulse Ox 96 95 O2 Delivery Room Air Room Air Intake and Output 09/07/19 09/07/19 09/08/19 15:00 23:00 07:00 Intake Total 700 ml 950 ml Balance 700 ml 950 ml FILI WARD MD Sep 08, 2019 11:20
[2019-09-08 12:16] LABS: BASO % 0 % (0-3); EOS % 0 % (0-3); HEMATOCRIT 39.6 % (36.0-47.0); LYMPH # 1.7 x10^3/uL (1.0-4.8); LYMPH % 18 % (24-48); MEAN CORPUSCULAR HEMOGLOBIN 28 pg (25-35); MEAN CORPUSCULAR HGB CONC 33 g/dL (31-37); MEAN CORPUSCULAR VOLUME 85 fL (79-100); MONO # 0.7 x10^3/uL (0.0-1.1); MONO % 8 % (0-9); NEUT # 7.1 x10^3/uL (1.8-7.7); NEUT % 74 % (31-73); PLATELET COUNT 81 x10^3/uL (140-400); RED BLOOD COUNT 4.68 x10^6/uL (3.50-5.40); RED CELL DISTRIBUTION WIDTH 15.6 % (11.5-14.5); WHITE BLOOD COUNT 9.6 x10^3/uL (4.0-11.0)
[2019-09-08 15:00] VITALS: BP 116/42
[2019-09-08] MEDS: cefTRIAXone IV Push 1 GM VIAL. IVP SCH (17:46)
[2019-09-08 19:00] VITALS: BP 131/65
[2019-09-08] MEDS: LACTOBACILLUS RHAMNOSUS GG 1 CAPSULE. PO SCH (21:44)
[2019-09-08 23:00] VITALS: BP 95/42
[2019-09-09 00:07] LABS: HEMOGLOBIN A1C 7.1 % (4.8-5.6)
[2019-09-09 03:00] VITALS: BP 103/55
[2019-09-09 07:00] VITALS: BP 121/53
[2019-09-09] MEDS: CALCIUM CARB/VIT D3 500/200 TABLET. PO SCH ×2 (08:43→17:18)
[2019-09-09] MEDS: POTASSIUM CHLORIDE 20 MEQ TABLET.ER. PO SCH ×2 (08:43→17:18)
[2019-09-09] MEDS: LACTOBACILLUS RHAMNOSUS GG 1 CAPSULE. PO SCH ×2 (08:44→21:03)
[2019-09-09] MEDS: LISINOPRIL 10 MG TABLET PO SCH ×2 (08:44→21:04)
[2019-09-09] MEDS: FUROSEMIDE 80 MG TABLET. PO SCH (08:44)
[2019-09-09] MEDS: MULTIVITAMIN with MINERAL TABLET. PO SCH (08:44)
[2019-09-09] MEDS: amLODIPine BESYLATE 5 MG TABLET PO SCH (08:44)
[2019-09-09] MEDS: BRIMONIDINE 0.2% OPHTH SOLUTION 5ML BOTTLE. OU SCH ×2 (08:45→21:04)
[2019-09-09] MEDS: DORZOLAMIDE 2% OPHTH SOLUTION 10ML BOTTLE. OU SCH ×2 (08:46→21:04)
[2019-09-09] MEDS: INSULIN LISPRO 300 UNITS/3 ML VIAL. SQ SCH ×6 (08:55→17:00)
--- NOTE | 2019-09-09 08:55 | RAD ---
EXAM: Abdomen sonogram. HISTORY: Thrombocytopenia. TECHNIQUE: Sonographic imaging of the abdomen was performed. COMPARISON: None. FINDINGS: There is hepatomegaly. No focal hepatic lesion is seen. There is suspected hepatic steatosis. The common bile duct is normal in caliber. The gallbladder is surgically absent. The kidneys are normal in size. There is no hydronephrosis. The pancreas, spleen, aorta and inferior vena cava are predominantly obscured due to bowel gas and body habitus. IMPRESSION: 1. Hepatomegaly and suspected hepatic steatosis. 2. Cholecystectomy. 3. Obscured midline structures and spleen due to bowel gas and body habitus. Electronically signed by: Nicolasa Joshi MD (09/09/2019 8:52 AM) [id number]
[2019-09-09] MEDS: INSULIN GLARGINE SYRINGE. SQ SCH (08:57)
[2019-09-09] MEDS: TIMOLOL 0.5% OPHTH SOLUTION 5ML BOTTLE. OU SCH ×2 (09:00→21:04)
--- NOTE | 2019-09-09 10:33 | PDOC ---
PROGRESS NOTES History of Present Illness History of Present Illness VTE Prophylaxis Ordered VTE Prophylaxis Devices: Yes VTE Pharmacological Prophylaxi: Yes IMPRESSION UTI LEUKOCYTOSIS SIRS DM 2 on insuln Obesity BMI 45 GEn weakness HIGH FALL RISK NOn injury falls at home HTN, lidpis - etc chronci stable THROMBOCYTOPENIA, hx ITP followed by DR EAGLE PLAn: NOn tele bed ADMIT 2 MN IV Rocephin, urine cx, PT OT Check hgba1c SSI high dose home MEDS Ambulate ad skye wth fall risk DM diet ACCUCHECKS ABD SONO CBC TODAY heme consult Vitals Vitals Vital Signs Date Time Temp Pulse Resp B/P (MAP) Pulse Ox O2 Delivery O2 Flow Rate FiO2 09/09/19 08:44 65 103/55 09/09/19 07:00 97.4 18 96 Room Air 97.4 Physical Exam Physical Exam TREMOR General: Alert, Oriented X3, Cooperative, No acute distress Heart: Regular rate, Normal S1 Lungs: Clear Abdomen: Normal bowel sounds, Soft, No tenderness, No hepatosplenomegaly, No masses Extremities: No clubbing, No cyanosis, No edema, Normal pulses, No tenderness/swelling Skin: No rashes, No breakdown, No significant lesion Labs LABS EXAM: Abdomen sonogram. HISTORY: Thrombocytopenia. TECHNIQUE: Sonographic imaging of the abdomen was performed. COMPARISON: None. FINDINGS: There is hepatomegaly. No focal hepatic lesion is seen. There is suspected hepatic steatosis. The common bile duct is normal in caliber. The gallbladder is surgically absent. The kidneys are normal in size. There is no hydronephrosis. The pancreas, spleen, aorta and inferior vena cava are predominantly obscured due to bowel gas and body habitus. IMPRESSION: 1. Hepatomegaly and suspected hepatic steatosis. 2. Cholecystectomy. 3. Obscured midline structures and spleen due to bowel gas and body habitus. Electronically signed by: Nicolasa Joshi MD (09/09/2019 8:52 AM) [facility] DICTATED and SIGNED BY: NICOLASA JOSHI MD DATE: 09/09/19 0852 Laboratory Tests Test 09/08/19 11:48 09/08/19 17:00 09/08/19 21:23 09/09/19 08:13 Glucose (Fingerstick) 113 mg/dL (70-99) 163 mg/dL (70-99) 71 mg/dL (70-99) 181 mg/dL (70-99) Assessment and Plan Assessmemt and Plan Problems Medical Problems: (1) Generalized weakness Status: Acute Comment Review of Relevant I have reviewed the following items heidi (where applicable) has been applied. Labs Laboratory Tests Test 09/07/19 16:54 09/07/19 17:01 09/07/19 17:38 09/07/19 20:58 Glucose (Fingerstick) 271 mg/dL (70-99) 284 mg/dL (70-99) Urine Collection Type U cath Urine Color [place] Urine Clarity Cloudy Urine pH 5.5 Urine Specific [place] 1.025 Urine Protein 100 mg/dL (NEG-TRACE) Urine Glucose (UA) Negative mg/dL (NEG) Urine Ketones (Stick) Trace mg/dL (NEG) Urine Blood Moderate (NEG) Urine Nitrite Negative (NEG) Urine Bilirubin Small (NEG) Urine Urobilinogen Dipstick 1.0 mg/dL (0.2 mg/dL) Urine Leukocyte Esterase Large (NEG) Urine RBC 3-5 /HPF (0-2) Urine WBC >40 /HPF (0-4) Urine Squamous Epithelial Cells Few /LPF Urine Bacteria Many /HPF (0-FEW) Urine Hyaline Casts Moderate /HPF Urine Mucus Mod /LPF White Blood Count 12.4 x10^3/uL (4.0-11.0) Red Blood Count 5.03 x10^6/uL (3.50-5.40) Hemoglobin 13.7 g/dL (12.0-15.5) Hematocrit 42.1 % (36.0-47.0) Mean Corpuscular Volume 84 fL (79-100) Mean Corpuscular Hemoglobin 27 pg (25-35) Mean Corpuscular Hemoglobin Concent 33 g/dL (31-37) Red Cell Distribution Width 14.6 % (11.5-14.5) Platelet Count 72 x10^3/uL (140-400) Neutrophils (%) (Auto) 84 % (31-73) Lymphocytes (%) (Auto) 10 % (24-48) Monocytes (%) (Auto) 6 % (0-9) Eosinophils (%) (Auto) 0 % (0-3) Basophils (%) (Auto) 0 % (0-3) Neutrophils # (Auto) 10.4 x10^3/uL (1.8-7.7) Lymphocytes # (Auto) 1.2 x10^3/uL (1.0-4.8) Monocytes # (Auto) 0.7 x10^3/uL (0.0-1.1) Eosinophils # (Auto) 0.0 x10^3/uL (0.0-0.7) Basophils # (Auto) 0.0 x10^3/uL (0.0-0.2) Sodium Level 136 mmol/L (136-145) Potassium Level 3.9 mmol/L (3.5-5.1) Chloride Level 98 mmol/L (98-107) Carbon Dioxide Level 30 mmol/L (21-32) Anion Gap 8 (6-14) Blood Urea Nitrogen 18 mg/dL (7-20) Creatinine 1.2 mg/dL (0.6-1.0) Estimated GFR (Cockcroft-Gault) 43.8 BUN/Creatinine Ratio 15 (6-20) Glucose Level 275 mg/dL (70-99) Hemoglobin A1c 7.1 % (4.8-5.6) Lactic Acid Level 2.2 mmol/L (0.4-2.0) Calcium Level 9.1 mg/dL (8.5-10.1) Magnesium Level 1.9 mg/dL (1.8-2.4) Total Bilirubin 1.5 mg/dL (0.2-1.0) Aspartate Amino Transf (AST/SGOT) 12 U/L (15-37) Alanine Aminotransferase (ALT/SGPT) 13 U/L (14-59) Alkaline Phosphatase 74 U/L (46-116) Total Protein 7.2 g/dL (6.4-8.2) Albumin 3.3 g/dL (3.4-5.0) Albumin/Globulin Ratio 0.8 (1.0-1.7) Test 09/07/19 21:20 09/08/19 03:05 09/08/19 07:42 09/08/19 11:48 Lactic Acid Level 2.5 mmol/L (0.4-2.0) White Blood Count 9.6 x10^3/uL (4.0-11.0) Red Blood Count 4.68 x10^6/uL (3.50-5.40) Hemoglobin 13.0 g/dL (12.0-15.5) Hematocrit 39.6 % (36.0-47.0) Mean Corpuscular Volume 85 fL (79-100) Mean Corpuscular Hemoglobin 28 pg (25-35) Mean Corpuscular Hemoglobin Concent 33 g/dL (31-37) Red Cell Distribution Width 15.6 % (11.5-14.5) Platelet Count 81 x10^3/uL (140-400) Neutrophils (%) (Auto) 74 % (31-73) Lymphocytes (%) (Auto) 18 % (24-48) Monocytes (%) (Auto) 8 % (0-9) Eosinophils (%) (Auto) 0 % (0-3) Basophils (%) (Auto) 0 % (0-3) Neutrophils # (Auto) 7.1 x10^3/uL (1.8-7.7) Lymphocytes # (Auto) 1.7 x10^3/uL (1.0-4.8) Monocytes # (Auto) 0.7 x10^3/uL (0.0-1.1) Eosinophils # (Auto) 0.0 x10^3/uL (0.0-0.7) Basophils # (Auto) 0.0 x10^3/uL (0.0-0.2) Sodium Level 136 mmol/L (136-145) Potassium Level 3.7 mmol/L (3.5-5.1) Chloride Level 100 mmol/L (98-107) Carbon Dioxide Level 28 mmol/L (21-32) Anion Gap 8 (6-14) Blood Urea Nitrogen 18 mg/dL (7-20) Creatinine 1.0 mg/dL (0.6-1.0) Estimated GFR (Cockcroft-Gault) 54.1 Glucose Level 242 mg/dL (70-99) Calcium Level 8.9 mg/dL (8.5-10.1) Glucose (Fingerstick) 228 mg/dL (70-99) 113 mg/dL (70-99) Test 09/08/19 17:00 09/08/19 21:23 09/09/19 08:13 Glucose (Fingerstick) 163 mg/dL (70-99) 71 mg/dL (70-99) 181 mg/dL (70-99) Laboratory Tests Test 09/08/19 11:48 09/08/19 17:00 09/08/19 21:23 09/09/19 08:13 Glucose (Fingerstick) 113 mg/dL (70-99) 163 mg/dL (70-99) 71 mg/dL (70-99) 181 mg/dL (70-99) Microbiology 09/07/19 Blood Culture - Preliminary, Resulted NO GROWTH AFTER 1 DAY Medications Current Medications Ceftriaxone Sodium (Rocephin) 1 gm 1X STAT IVP Last administered on 09/07/19 18:31; Start 09/07/19 at 18:04; Stop 09/07/19 at 18:07; Status DC Sodium Chloride 500 ml @ 500 mls/hr 1X STAT IV Last administered on 09/07/19 18:35; Start 09/07/19 at 18:28; Stop 09/07/19 at 19:27; Status DC Ondansetron HCl (Zofran) 4 mg PRN Q8HRS PRN IV NAUSEA/VOMITING; Start 09/07/19 at 19:00; Stop 09/07/19 at 19:28; Status DC Sodium Chloride 500 ml @ 500 mls/hr 1X STAT IV Last administered on 09/07/19 22:57; Start 09/07/19 at 18:49; Stop 09/07/19 at 19:48; Status DC Ceftriaxone Sodium (Rocephin) 1 gm Q24H IVP Last administered on 09/08/19 17:46; Start 09/08/19 at 18:00 Ondansetron HCl (Zofran) 4 mg PRN Q6HRS PRN IVP NAUSEA/VOMITING 1ST CHOICE; Start 09/07/19 at 19:30 Temazepam (Restoril) 7.5 mg PRN QHS PRN PO INSOMNIA Last administered on 09/07/19 22:41; Start 09/07/19 at 19:30 Calcium Carbonate/ Glycine (Tums) 500 mg PRN AFTMEALHC PRN PO INDIGESTION 1ST CHOICE; Start 09/07/19 at 19:30 Albuterol Sulfate (Ventolin Neb Soln) 2.5 mg PRN QID PRN INH SHORTNESS OF BREATH; Start 09/07/19 at 19:30 Amlodipine Besylate (Norvasc) 5 mg DAILY PO Last administered on 09/09/19at 08:44; Start 09/08/19 at 09:00 Dorzolamide HCl (Trusopt) 1 drop BID OU Last administered on 09/09/19 08:46; Start 09/07/19 at 21:00 Furosemide (Lasix) 80 mg DAILY PO Last administered on 09/09/19 08:44; Start 09/08/19 at 09:00 Albuterol/ Ipratropium (Duoneb) 3 ml TID NEB Last administered on 09/08/19 12:54; Start 09/07/19 at 21:00 Lisinopril (Prinivil) 10 mg BID PO Last administered on 09/09/19 08:44; Start 09/07/19 at 21:00 Non-Formulary Medication (Brimonidine Tartrate/Timolol (Combigan Eye Drops)) 5 ml BID OP ; Start 09/07/19 at 21:00; Status UNV Calcium/Vitamin D (Oscal D 500mg/ 200uts) 1 tab BIDWMEALS PO Last administered on 09/09/19 08:43; Start 09/08/19 at 08:00 Insulin Glargine (Lantus Syringe) 50 unit DAILY08 SQ Last administered on 09/09/19 08:57; Start 09/08/19 at 08:00 Insulin Human Lispro (HumaLOG) 20 units TIDWMEALS SQ Last administered on 09/09/19 08:55; Start 09/07/19 at 19:00 Metronidazole (Nydamax) 1 ok BID TP ; Start 09/07/19 at 21:00; Stop 09/08/19 at 04:48; Status DC Potassium Chloride (Klor-Con) 20 meq BIDWMEALS PO Last administered on 09/09/19 08:43; Start 09/08/19 at 08:00 Multivitamins (Thera M Plus) 1 tab DAILY PO Last administered on 09/09/19 08:44; Start 09/08/19 at 09:00 Insulin Human Lispro (HumaLOG) 0-9 UNITS TIDWMEALS SQ Last administered on 09/09/19 08:56; Start 09/08/19 at 08:00 Dextrose (Dextrose 50%-Water Syringe) 12.5 gm PRN Q15MIN PRN IV SEE COMMENTS; Start 09/07/19 at 19:30 Brimonidine Tartrate (Alphagan) 1 drop BID OU Last administered on 09/09/19at 08:45; Start 09/07/19 at 21:00 Timolol Maleate (Timoptic 0.5% Ophth) 1 drop BID OU Last administered on 09/08/19at 22:13; Start 09/07/19 at 21:00 Metronidazole (Nydamax) 1 ok PRN BID PRN TP DRY SKIN / SCALING Last administered on 09/08/19at 21:51; Start 09/08/19 at 05:00 Lactobacillus Rhamnosus (Culturelle) 1 cap BID PO Last administered on 09/09/19 08:44; Start 09/08/19 at 21:00 Active Scripts Active Reported Hair Regrowth Treatment (Minoxidil) 180 Ml Solution 180 Ml TP Metrocream (Metronidazole) 45 Gm Cream..g. 1 Ok TP BID Proair Hfa Inhaler (Albuterol Sulfate) 8.5 Gm Hfa.aer.ad 1 Puff INH PRN Q4-6HRS PRN Glucosamine & Chondroitin Cap (Gluc 2KCL/Chondr/Isra Hy/Hy Ac) 1 Each Capsule Each PO BID Calcium + Vitamin D Tablet (Calcium Carbonate/Vitamin D3) 1 Each Tablet 1 Each PO BID Centrum Silver Tablet (Multivits-Min/Fa/Lycopene/Lut) 1 Each Tablet 1 Each PO Combigan Eye Drops (Brimonidine Tartrate/Timolol) 5 Ml Drops 5 Ml OP BID Dorzolamide Hcl 10 Ml Drops 1 Drop EACHEYE BID Zioptan 0.0015% Eye Drops (Tafluprost/Pf) 1 Each Droperette 1 Each OP Potassium Chloride 20 Meq Tablet.er 20 Meq PO BID Furosemide 80 Mg Tablet 1 Tab PO DAILY Humalog (Insulin Lispro) 100 Unit/1 Ml Cartridge 20 Unit SQ TIDWMEALS Lantus Solostar (Insulin Glargine,Hum.rec.anlog) 100 Unit/1 Ml Insuln.pen 50 Unit SQ DAILY08 Lisinopril 10 Mg Tablet 1 Tab PO BID Amlodipine Besylate 5 Mg Tablet 5 Mg PO DAILY Vitals/I & O Vital Sign - Last 24 Hours 09/08/19 09/08/19 09/08/19 09/08/19 11:00 12:54 15:00 19:00 Temp 97.8 97.8 98.5 97.8 97.8 98.5 Pulse 72 80 74 Resp 16 18 18 B/P (MAP) 107/53 (71) 116/42 (66) 131/65 (87) Pulse Ox 96 94 95 69 O2 Delivery Room Air Room Air Room Air 09/08/19 09/08/19 09/08/19 09/09/19 20:00 21:46 23:00 03:00 Temp 98.5 97.8 98.5 97.8 Pulse 75 74 65 Resp 18 16 B/P (MAP) 150/64 95/42 (59) 103/55 (71) Pulse Ox 94 94 O2 Delivery Room Air 09/09/19 09/09/19 09/09/19 07:00 08:44 08:44 Temp 97.4 97.4 Pulse 64 65 65 Resp 18 B/P (MAP) 121/53 (75) 103/55 103/55 Pulse Ox 96 O2 Delivery Room Air Intake and Output 09/08/19 09/08/19 09/09/19 15:00 23:00 07:00 Intake Total 360 ml 590 ml 120 ml Balance 360 ml 590 ml 120 ml FILI WARD MD Sep 09, 2019 10:33
[2019-09-09 10:56] VITALS: BP 107/50
--- NOTE | 2019-09-09 13:14 | NUR ---
Wound Care Wound care consult for stasis ulcer to RLE. Cleansed, pictured and measured wound. Applied Medihoney alginate and covered with foam, recommend to change every 3 days. No other wounds noted, pt with Dr Muhammad at completion of assessment. WC will continue to follow for possible changes.
[2019-09-09 13:17] LABS: BASO % 0 % (0-3); EOS # 0.1 x10^3/uL (0.0-0.7); EOS % 2 % (0-3); HEMATOCRIT 38.1 % (36.0-47.0); HEMOGLOBIN 12.5 g/dL (12.0-15.5); LYMPH # 2.9 x10^3/uL (1.0-4.8); LYMPH % 35 % (24-48); MEAN CORPUSCULAR HEMOGLOBIN 28 pg (25-35); MEAN CORPUSCULAR HGB CONC 33 g/dL (31-37); MEAN CORPUSCULAR VOLUME 84 fL (79-100); MONO # 0.8 x10^3/uL (0.0-1.1); MONO % 10 % (0-9); NEUT # 4.5 x10^3/uL (1.8-7.7); NEUT % 54 % (31-73); PLATELET COUNT 112 x10^3/uL (140-400); RED BLOOD COUNT 4.54 x10^6/uL (3.50-5.40); RED CELL DISTRIBUTION WIDTH 15.3 % (11.5-14.5); WHITE BLOOD COUNT 8.3 x10^3/uL (4.0-11.0)
[2019-09-09 13:34] LABS: ALBUMIN/GLOBULIN RATIO 0.8 (1.0-1.7); CALCIUM 8.9 mg/dL (8.5-10.1); CREATININE 1.1 mg/dL (0.6-1.0); GFR 48.4; POTASSIUM 4.1 mmol/L (3.5-5.1); TOTAL BILIRUBIN 0.7 mg/dL (0.2-1.0); TOTAL PROTEIN 6.9 g/dL (6.4-8.2)
[2019-09-09 15:00] VITALS: BP 92/48
--- NOTE | 2019-09-09 16:13 | NUR ---
SW following pt for dc planning. Chart reviewed and pt lives at home with spouse. Discussed with Pt regarding SNU, options and insurance coverage. Pt chose [facility]. SW phoned and faxed referral. Pt is accepted and will need to bring eye drops with her. Pt will need one more midnight. Will continue to follow.
[2019-09-09] MEDS: cefTRIAXone IV Push 1 GM VIAL. IVP SCH (17:19)
[2019-09-09 19:00] VITALS: BP 143/69
[2019-09-09] MEDS ORDERED: MULTIVITAMIN I-VITE TABLET. PO SCH (21:00)
--- NOTE | 2019-09-09 22:41 | CONS ---
DATE OF CONSULTATION: 09/09/2019 HEMATOLOGY ONCOLOGY CONSULTATION REPORT CONSULTATION REQUESTED BY: Beth Garza MD REASON FOR CONSULTATION: Thrombocytopenia. HISTORY OF PRESENT ILLNESS: The patient is a 74-year-old female, who was diagnosed with ITP in 2007. She received pulse dexamethasone, after which she relapsed quickly and she was placed on prednisone and tapered in 03/2008. She has not required any treatment since then and she has not had any recurrent episodes. I last saw her at my office in 07/2015 when her platelet count was 71,000. She was admitted to [facility] on 09/07/2019 with complaints of falls and incidentally was noted to have urinary tract infection with leukocytosis and a WBC of 12. She was noted to have thrombocytopenia with a platelet count of 72,000 on 09/07/2019 and hence I was consulted. Her platelet count improved to 112,000 on 09/09/2019. Review of the prior records indicates that her platelet counts were normal on 04/29/2018 at 234. She denies any nosebleeds or gum bleeding. No hematemesis, melena, or hematochezia. No hemoptysis or hematuria. PAST MEDICAL HISTORY: Hypertension, ITP, COPD, bronchitis, diabetes. SOCIAL HISTORY: No smoking or alcohol abuse. FAMILY HISTORY: Positive for hypercholesterolemia and hypertension. REVIEW OF SYSTEMS: A 12-point review of system was performed. Pertinent positives are mentioned in the history of presenting illness. Rest of the system review is negative. PHYSICAL EXAMINATION: GENERAL APPEARANCE: The patient is a 74-year-old female, who is in no acute cardiorespiratory distress. VITAL SIGNS: Blood pressure 107/50, temperature 97.7. HEAD: Atraumatic, normocephalic. EYES: No icterus. NECK: Supple. CHEST: Bilaterally symmetrical. HEART: S1, S2 normal. ABDOMEN: Soft, nontender. CENTRAL NERVOUS SYSTEM: No focal neurological deficits. LYMPHATICS: No lymphadenopathy. SKIN: No rashes. PSYCHOLOGIC: Mood and affect are appropriate. LABORATORY DATA: From 09/09/2019; WBC 8.3, hemoglobin 12.5, platelet count 112,000. WBC was 12.4 on admission on 09/07/2019. IMPRESSION AND PLAN: 1. 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 She has chronic thrombocytopenia since 2007 and she responded well to prednisone in 2007. However, her platelet counts have normalized in 2018 and now it is worse again, which could be because of underlying infection. She has urinary tract infection. I would recommend continued monitoring of her platelet count. I would expect gradual improvement. If her platelet count gets to below 30, then she will need treatment for idiopathic thrombocytopenia purpura. She does not want to take prednisone anymore for idiopathic thrombocytopenia purpura because of prior side effects and I will treat her with rituximab if she has recurrent idiopathic thrombocytopenia purpura with a platelet count of less than 30. 2. Urinary tract infection. Continue management per primary team. 3. Leukocytosis due to urinary tract infection, resolved. GINA EAGLE MD DR: LAURENT/nts JOB#: [id number] / [id number] RAJINDER
[2019-09-09 23:00] VITALS: BP 136/77
[2019-09-10 03:00] VITALS: BP 135/64
[2019-09-10 07:00] VITALS: BP 120/53
[2019-09-10] MEDS: INSULIN LISPRO 300 UNITS/3 ML VIAL. SQ SCH ×4 (08:00→12:54)
[2019-09-10] MEDS: TIMOLOL 0.5% OPHTH SOLUTION 5ML BOTTLE. OU SCH (09:00)
[2019-09-10] MEDS: MULTIVITAMIN with MINERAL TABLET. PO SCH (10:06)
[2019-09-10] MEDS: amLODIPine BESYLATE 5 MG TABLET PO SCH (10:06)
[2019-09-10] MEDS: POTASSIUM CHLORIDE 20 MEQ TABLET.ER. PO SCH (10:06)
[2019-09-10] MEDS: CALCIUM CARB/VIT D3 500/200 TABLET. PO SCH (10:06)
[2019-09-10] MEDS: LACTOBACILLUS RHAMNOSUS GG 1 CAPSULE. PO SCH (10:06)
[2019-09-10] MEDS: LISINOPRIL 10 MG TABLET PO SCH (10:07)
[2019-09-10] MEDS: FUROSEMIDE 80 MG TABLET. PO SCH (10:07)
--- NOTE | 2019-09-10 10:26 | PDOC ---
PROGRESS NOTES History of Present Illness History of Present Illness VTE Prophylaxis Ordered VTE Prophylaxis Devices: Yes VTE Pharmacological Prophylaxi: Yes discharge dx UTI e coli LEUKOCYTOSIS SIRS DM 2 on insuln Obesity BMI 45 GEn weakness with gait instability HIGH FALL RISK NOn injury falls at home HTN, lidpis - etc chronci stable THROMBOCYTOPENIA, hx ITP followed by DR EAGLE PLAn: ADMIT 2 MN IV Rocephin, urine cx, PT OT Check hgba1c SSI high dose home MEDS Ambulate ad skye wth fall risk DM diet ACCUCHECKS ABD SONO to snf 09/10 heme consult levaquin 250 mg po x 7 days on d/c Vitals Vitals Vital Signs Date Time Temp Pulse Resp B/P (MAP) Pulse Ox O2 Delivery O2 Flow Rate FiO2 09/10/19 10:07 58 120/53 09/10/19 07:00 97.5 18 93 Room Air 97.5 Physical Exam Physical Exam TREMOR General: Alert, Oriented X3, Cooperative, No acute distress Heart: Regular rate, Normal S1 Lungs: Clear Abdomen: Normal bowel sounds, Soft, No tenderness, No hepatosplenomegaly, No masses Extremities: No clubbing, No cyanosis, No edema, Normal pulses, No tenderness/swelling Skin: No rashes, No breakdown, No significant lesion Labs LABS Laboratory Tests Test 09/09/19 11:53 09/09/19 12:55 09/09/19 16:39 09/09/19 18:47 Glucose (Fingerstick) 82 mg/dL (70-99) 51 mg/dL (70-99) 206 mg/dL (70-99) White Blood Count 8.3 x10^3/uL (4.0-11.0) Red Blood Count 4.54 x10^6/uL (3.50-5.40) Hemoglobin 12.5 g/dL (12.0-15.5) Hematocrit 38.1 % (36.0-47.0) Mean Corpuscular Volume 84 fL (79-100) Mean Corpuscular Hemoglobin 28 pg (25-35) Mean Corpuscular Hemoglobin Concent 33 g/dL (31-37) Red Cell Distribution Width 15.3 % (11.5-14.5) Platelet Count 112 x10^3/uL (140-400) Neutrophils (%) (Auto) 54 % (31-73) Lymphocytes (%) (Auto) 35 % (24-48) Monocytes (%) (Auto) 10 % (0-9) Eosinophils (%) (Auto) 2 % (0-3) Basophils (%) (Auto) 0 % (0-3) Neutrophils # (Auto) 4.5 x10^3/uL (1.8-7.7) Lymphocytes # (Auto) 2.9 x10^3/uL (1.0-4.8) Monocytes # (Auto) 0.8 x10^3/uL (0.0-1.1) Eosinophils # (Auto) 0.1 x10^3/uL (0.0-0.7) Basophils # (Auto) 0.0 x10^3/uL (0.0-0.2) Sodium Level 140 mmol/L (136-145) Potassium Level 4.1 mmol/L (3.5-5.1) Chloride Level 102 mmol/L (98-107) Carbon Dioxide Level 30 mmol/L (21-32) Anion Gap 8 (6-14) Blood Urea Nitrogen 23 mg/dL (7-20) Creatinine 1.1 mg/dL (0.6-1.0) Estimated GFR (Cockcroft-Gault) 48.4 BUN/Creatinine Ratio 21 (6-20) Glucose Level 99 mg/dL (70-99) Calcium Level 8.9 mg/dL (8.5-10.1) Total Bilirubin 0.7 mg/dL (0.2-1.0) Aspartate Amino Transf (AST/SGOT) 17 U/L (15-37) Alanine Aminotransferase (ALT/SGPT) 13 U/L (14-59) Alkaline Phosphatase 62 U/L (46-116) Total Protein 6.9 g/dL (6.4-8.2) Albumin 3.0 g/dL (3.4-5.0) Albumin/Globulin Ratio 0.8 (1.0-1.7) Test 09/09/19 21:16 09/10/19 08:02 Glucose (Fingerstick) 172 mg/dL (70-99) 176 mg/dL (70-99) Assessment and Plan Assessmemt and Plan Problems Medical Problems: (1) Generalized weakness Status: Acute Comment Review of Relevant I have reviewed the following items heidi (where applicable) has been applied. Labs Laboratory Tests Test 09/08/19 11:48 09/08/19 17:00 09/08/19 21:23 09/09/19 08:13 Glucose (Fingerstick) 113 mg/dL (70-99) 163 mg/dL (70-99) 71 mg/dL (70-99) 181 mg/dL (70-99) Test 09/09/19 11:53 09/09/19 12:55 09/09/19 16:39 09/09/19 18:47 Glucose (Fingerstick) 82 mg/dL (70-99) 51 mg/dL (70-99) 206 mg/dL (70-99) White Blood Count 8.3 x10^3/uL (4.0-11.0) Red Blood Count 4.54 x10^6/uL (3.50-5.40) Hemoglobin 12.5 g/dL (12.0-15.5) Hematocrit 38.1 % (36.0-47.0) Mean Corpuscular Volume 84 fL (79-100) Mean Corpuscular Hemoglobin 28 pg (25-35) Mean Corpuscular Hemoglobin Concent 33 g/dL (31-37) Red Cell Distribution Width 15.3 % (11.5-14.5) Platelet Count 112 x10^3/uL (140-400) Neutrophils (%) (Auto) 54 % (31-73) Lymphocytes (%) (Auto) 35 % (24-48) Monocytes (%) (Auto) 10 % (0-9) Eosinophils (%) (Auto) 2 % (0-3) Basophils (%) (Auto) 0 % (0-3) Neutrophils # (Auto) 4.5 x10^3/uL (1.8-7.7) Lymphocytes # (Auto) 2.9 x10^3/uL (1.0-4.8) Monocytes # (Auto) 0.8 x10^3/uL (0.0-1.1) Eosinophils # (Auto) 0.1 x10^3/uL (0.0-0.7) Basophils # (Auto) 0.0 x10^3/uL (0.0-0.2) Sodium Level 140 mmol/L (136-145) Potassium Level 4.1 mmol/L (3.5-5.1) Chloride Level 102 mmol/L (98-107) Carbon Dioxide Level 30 mmol/L (21-32) Anion Gap 8 (6-14) Blood Urea Nitrogen 23 mg/dL (7-20) Creatinine 1.1 mg/dL (0.6-1.0) Estimated GFR (Cockcroft-Gault) 48.4 BUN/Creatinine Ratio 21 (6-20) Glucose Level 99 mg/dL (70-99) Calcium Level 8.9 mg/dL (8.5-10.1) Total Bilirubin 0.7 mg/dL (0.2-1.0) Aspartate Amino Transf (AST/SGOT) 17 U/L (15-37) Alanine Aminotransferase (ALT/SGPT) 13 U/L (14-59) Alkaline Phosphatase 62 U/L (46-116) Total Protein 6.9 g/dL (6.4-8.2) Albumin 3.0 g/dL (3.4-5.0) Albumin/Globulin Ratio 0.8 (1.0-1.7) Test 09/09/19 21:16 09/10/19 08:02 Glucose (Fingerstick) 172 mg/dL (70-99) 176 mg/dL (70-99) Laboratory Tests Test 09/09/19 11:53 09/09/19 12:55 09/09/19 16:39 09/09/19 18:47 Glucose (Fingerstick) 82 mg/dL (70-99) 51 mg/dL (70-99) 206 mg/dL (70-99) White Blood Count 8.3 x10^3/uL (4.0-11.0) Red Blood Count 4.54 x10^6/uL (3.50-5.40) Hemoglobin 12.5 g/dL (12.0-15.5) Hematocrit 38.1 % (36.0-47.0) Mean Corpuscular Volume 84 fL (79-100) Mean Corpuscular Hemoglobin 28 pg (25-35) Mean Corpuscular Hemoglobin Concent 33 g/dL (31-37) Red Cell Distribution Width 15.3 % (11.5-14.5) Platelet Count 112 x10^3/uL (140-400) Neutrophils (%) (Auto) 54 % (31-73) Lymphocytes (%) (Auto) 35 % (24-48) Monocytes (%) (Auto) 10 % (0-9) Eosinophils (%) (Auto) 2 % (0-3) Basophils (%) (Auto) 0 % (0-3) Neutrophils # (Auto) 4.5 x10^3/uL (1.8-7.7) Lymphocytes # (Auto) 2.9 x10^3/uL (1.0-4.8) Monocytes # (Auto) 0.8 x10^3/uL (0.0-1.1) Eosinophils # (Auto) 0.1 x10^3/uL (0.0-0.7) Basophils # (Auto) 0.0 x10^3/uL (0.0-0.2) Sodium Level 140 mmol/L (136-145) Potassium Level 4.1 mmol/L (3.5-5.1) Chloride Level 102 mmol/L (98-107) Carbon Dioxide Level 30 mmol/L (21-32) Anion Gap 8 (6-14) Blood Urea Nitrogen 23 mg/dL (7-20) Creatinine 1.1 mg/dL (0.6-1.0) Estimated GFR (Cockcroft-Gault) 48.4 BUN/Creatinine Ratio 21 (6-20) Glucose Level 99 mg/dL (70-99) Calcium Level 8.9 mg/dL (8.5-10.1) Total Bilirubin 0.7 mg/dL (0.2-1.0) Aspartate Amino Transf (AST/SGOT) 17 U/L (15-37) Alanine Aminotransferase (ALT/SGPT) 13 U/L (14-59) Alkaline Phosphatase 62 U/L (46-116) Total Protein 6.9 g/dL (6.4-8.2) Albumin 3.0 g/dL (3.4-5.0) Albumin/Globulin Ratio 0.8 (1.0-1.7) Test 09/09/19 21:16 09/10/19 08:02 Glucose (Fingerstick) 172 mg/dL (70-99) 176 mg/dL (70-99) Microbiology 09/07/19 Blood Culture - Preliminary, Resulted NO GROWTH AFTER 2 DAYS 09/07/19 Urine Culture - Preliminary, Resulted 09/07/19 Urine Culture Result 1 (JARET) - Preliminary, Resulted Medications Current Medications Ceftriaxone Sodium (Rocephin) 1 gm 1X STAT IVP Last administered on 09/07/19at 18:31; Start 09/07/19 at 18:04; Stop 09/07/19 at 18:07; Status DC Sodium Chloride 500 ml @ 500 mls/hr 1X STAT IV Last administered on 09/07/19at 18:35; Start 09/07/19 at 18:28; Stop 09/07/19 at 19:27; Status DC Ondansetron HCl (Zofran) 4 mg PRN Q8HRS PRN IV NAUSEA/VOMITING; Start 09/07/19 at 19:00; Stop 09/07/19 at 19:28; Status DC Sodium Chloride 500 ml @ 500 mls/hr 1X STAT IV Last administered on 09/07/19at 22:57; Start 09/07/19 at 18:49; Stop 09/07/19 at 19:48; Status DC Ceftriaxone Sodium (Rocephin) 1 gm Q24H IVP Last administered on 09/09/19at 17:19; Start 09/08/19 at 18:00 Ondansetron HCl (Zofran) 4 mg PRN Q6HRS PRN IVP NAUSEA/VOMITING 1ST CHOICE; Start 09/07/19 at 19:30 Temazepam (Restoril) 7.5 mg PRN QHS PRN PO INSOMNIA Last administered on 09/07at 22:41; Start 09/07/19 at 19:30 Calcium Carbonate/ Glycine (Tums) 500 mg PRN AFTMEALHC PRN PO INDIGESTION 1ST CHOICE; Start 09/07/19 at 19:30 Albuterol Sulfate (Ventolin Neb Soln) 2.5 mg PRN QID PRN INH SHORTNESS OF BREATH; Start 09/07/19 at 19:30; Stop 09/09/19 at 10:58; Status DC Amlodipine Besylate (Norvasc) 5 mg DAILY PO Last administered on 09/10/19at 10:06; Start 09/08/19 at 09:00 Dorzolamide HCl (Trusopt) 1 drop BID OU Last administered on 09/09/19at 21:04; Start 09/07/19 at 21:00 Furosemide (Lasix) 80 mg DAILY PO Last administered on 09/10/19 10:07; Start 09/08/19 at 09:00 Albuterol/ Ipratropium (Duoneb) 3 ml TID NEB Last administered on 09/08/19 12:54; Start 09/07/19 at 21:00; Stop 09/09/19 at 10:58; Status DC Lisinopril (Prinivil) 10 mg BID PO Last administered on 09/10/19 10:07; Start 09/07/19 at 21:00 Non-Formulary Medication (Brimonidine Tartrate/Timolol (Combigan Eye Drops)) 5 ml BID OP ; Start 09/07/19 at 21:00; Status UNV Calcium/Vitamin D (Oscal D 500mg/ 200uts) 1 tab BIDWMEALS PO Last administered on 09/10/19 10:06; Start 09/08/19 at 08:00 Insulin Glargine (Lantus Syringe) 50 unit DAILY08 SQ Last administered on 09/09/19 08:57; Start 09/08/19 at 08:00 Insulin Human Lispro (HumaLOG) 20 units TIDWMEALS SQ Last administered on 09/10/19 10:13; Start 09/07/19 at 19:00 Metronidazole (Nydamax) 1 suyapa BID TP ; Start 09/07/19 at 21:00; Stop 09/08/19 at 04:48; Status DC Potassium Chloride (Klor-Con) 20 meq BIDWMEALS PO Last administered on 09/10/19 10:06; Start 09/08/19 at 08:00 Multivitamins (Thera M Plus) 1 tab DAILY PO Last administered on 09/10/19 10:06; Start 09/08/19 at 09:00 Insulin Human Lispro (HumaLOG) 0-9 UNITS TIDWMEALS SQ Last administered on 09/09/19 08:56; Start 09/08/19 at 08:00 Dextrose (Dextrose 50%-Water Syringe) 12.5 gm PRN Q15MIN PRN IV SEE COMMENTS; Start 09/07/19 at 19:30 Brimonidine Tartrate (Alphagan) 1 drop BID OU Last administered on 09/09/19at 21:04; Start 09/07/19 at 21:00 Timolol Maleate (Timoptic 0.5% Ophth) 1 drop BID OU Last administered on at 21:04; Start 09/07/19 at 21:00 Metronidazole (Nydamax) 1 suyapa PRN BID PRN TP DRY SKIN / SCALING Last administered on 09/08/19at 21:51; Start 09/08/19 at 05:00 Lactobacillus Rhamnosus (Culturelle) 1 cap BID PO Last administered on 09/10/19at 10:06; Start 09/08/19 at 21:00 Multivitamins/ Minerals (I-Jeffrey) 1 tab QHS PO Last administered on 09/09/19at 21:03; Start 09/09/19 at 21:00 Active Scripts Active Reported Hair Regrowth Treatment (Minoxidil) 180 Ml Solution 180 Ml TP Metrocream (Metronidazole) 45 Gm Cream..g. 1 Suyapa TP BID Proair Hfa Inhaler (Albuterol Sulfate) 8.5 Gm Hfa.aer.ad 1 Puff INH PRN Q4-6HRS PRN Glucosamine & Chondroitin Cap (Gluc 2KCL/Chondr/Isra Hy/Hy Ac) 1 Each Capsule Each PO BID Calcium + Vitamin D Tablet (Calcium Carbonate/Vitamin D3) 1 Each Tablet 1 Each PO BID Centrum Silver Tablet (Multivits-Min/Fa/Lycopene/Lut) 1 Each Tablet 1 Each PO Combigan Eye Drops (Brimonidine Tartrate/Timolol) 5 Ml Drops 5 Ml OP BID Dorzolamide Hcl 10 Ml Drops 1 Drop EACHEYE BID Zioptan 0.0015% Eye Drops (Tafluprost/Pf) 1 Each Droperette 1 Each OP Potassium Chloride 20 Meq Tablet.er 20 Meq PO BID Furosemide 80 Mg Tablet 1 Tab PO DAILY Humalog (Insulin Lispro) 100 Unit/1 Ml Cartridge 20 Unit SQ TIDWMEALS Lantus Solostar (Insulin Glargine,Hum.rec.anlog) 100 Unit/1 Ml Insuln.pen 50 Unit SQ DAILY08 Lisinopril 10 Mg Tablet 1 Tab PO BID Amlodipine Besylate 5 Mg Tablet 5 Mg PO DAILY Vitals/I & O Vital Sign - Last 24 Hours 09/09/19 09/09/19 09/09/19 09/09/19 10:56 15:00 19:00 20:00 Temp 97.7 97.8 97.8 97.7 97.8 97.8 Pulse 70 72 74 Resp 16 16 20 B/P (MAP) 107/50 (69) 92/48 (63) 143/69 (93) Pulse Ox 95 95 95 O2 Delivery Room Air Room Air Room Air 09/09/19 09/09/19 09/10/19 09/10/19 21:04 23:00 03:00 07:00 Temp 98.2 98.0 97.5 98.2 98.0 97.5 Pulse 74 78 77 58 Resp 20 18 18 B/P (MAP) 144/84 136/77 (96) 135/64 (87) 120/53 (75) Pulse Ox 94 95 93 O2 Delivery Room Air 09/10/19 09/10/19 10:06 10:07 Pulse 58 58 B/P (MAP) 120/53 120/53 Intake and Output 09/09/19 09/09/19 09/10/19 15:00 23:00 07:00 Intake Total 750 ml 400 ml Balance 750 ml 400 ml FILI WARD MD Sep 10, 2019 10:26
[2019-09-10] MEDS: INSULIN GLARGINE SYRINGE. SQ SCH (10:45)
[2019-09-10] MEDS: DORZOLAMIDE 2% OPHTH SOLUTION 10ML BOTTLE. OU SCH (10:46)
[2019-09-10] MEDS: BRIMONIDINE 0.2% OPHTH SOLUTION 5ML BOTTLE. OU SCH (10:46)
--- NOTE | 2019-09-10 10:47 | NUR ---
This RN administered 40 units of Lantus instead of the ordered 50 units because pt stated she "takes 40 units at home."
[2019-09-10 11:00] VITALS: BP 106/49
--- NOTE | 2019-09-10 12:03 | PDOC3 ---
Discharge Summary Date of Admission: Sep 07, 2019 Date of Discharge: Sep 10, 2019 Follow-Up: 1-2 days Admitting Diagnosis comment: discharge dx UTI e coli LEUKOCYTOSIS SIRS DM 2 on insuln Obesity BMI 45 GEn weakness with gait instability HIGH FALL RISK NOn injury falls at home HTN, lidpis - etc chronci stable THROMBOCYTOPENIA, hx ITP followed by DR EAGLE PLAn: ADMIT 2 MN IV Rocephin, urine cx, PT OT Check hgba1c SSI high dose home MEDS Ambulate ad skye wth fall risk DM diet ACCUCHECKS ABD SONO to snf 09/10 PP heme consult levaquin 250 mg po x 7 days on d/c Vitals Vitals Vital Signs Date Time Temp Pulse Resp B/P (MAP) Pulse Ox O2 Delivery O2 Flow Rate FiO2 09/10/19 10:07 58 120/53 09/10/19 07:00 97.5 18 93 Room Air 97.5 Physical Exam Physical Exam TREMOR General: Alert, Oriented X3, Cooperative, No acute distress Heart: Regular rate, Normal S1 Lungs: Clear Abdomen: Normal bowel sounds, Soft, No tenderness, No hepatosplenomegaly, No masses Extremities: No clubbing, No cyanosis, No edema, Normal pulses, No tenderness/swelling Skin: No rashes, No breakdown, No significant lesion FINAL DIAGNOSIS Problems Medical Problems: (1) Generalized weakness Status: Acute Brief Hospital Course Ms. Tucker is a 74 old [sex] who presented with [FALLS, UTI ] Discharge Medications Current Medications Ceftriaxone Sodium (Rocephin) 1 gm 1X STAT IVP Last administered on 09/07/19at 18:31; Start 09/07/19 at 18:04; Stop 09/07/19 at 18:07; Status DC Sodium Chloride 500 ml @ 500 mls/hr 1X STAT IV Last administered on 09/07/19at 18:35; Start 09/07/19 at 18:28; Stop 09/07/19 at 19:27; Status DC Ondansetron HCl (Zofran) 4 mg PRN Q8HRS PRN IV NAUSEA/VOMITING; Start 09/07/19 at 19:00; Stop 09/07/19 at 19:28; Status DC Sodium Chloride 500 ml @ 500 mls/hr 1X STAT IV Last administered on 09/07/19at 22:57; Start 09/07/19 at 18:49; Stop 09/07/19 at 19:48; Status DC Ceftriaxone Sodium (Rocephin) 1 gm Q24H IVP Last administered on 09/09/19 17:19; Start 09/08/19 at 18:00 Ondansetron HCl (Zofran) 4 mg PRN Q6HRS PRN IVP NAUSEA/VOMITING 1ST CHOICE; Start 09/07/19 at 19:30 Temazepam (Restoril) 7.5 mg PRN QHS PRN PO INSOMNIA Last administered on 09/07/19 22:41; Start 09/07/19 at 19:30 Calcium Carbonate/ Glycine (Tums) 500 mg PRN AFTMEALHC PRN PO INDIGESTION 1ST CHOICE; Start 09/07/19 at 19:30 Albuterol Sulfate (Ventolin Neb Soln) 2.5 mg PRN QID PRN INH SHORTNESS OF BREATH; Start 09/07/19 at 19:30; Stop 09/09/19 at 10:58; Status DC Amlodipine Besylate (Norvasc) 5 mg DAILY PO Last administered on 09/10/19 10:06; Start 09/08/19 at 09:00 Dorzolamide HCl (Trusopt) 1 drop BID OU Last administered on 09/10/19 10:46; Start 09/07/19 at 21:00 Furosemide (Lasix) 80 mg DAILY PO Last administered on 09/10/19 10:07; Start 09/08/19 at 09:00 Albuterol/ Ipratropium (Duoneb) 3 ml TID NEB Last administered on 09/08/19 12:54; Start 09/07/19 at 21:00; Stop 09/09/19 at 10:58; Status DC Lisinopril (Prinivil) 10 mg BID PO Last administered on 09/10/19 10:07; Start 09/07/19 at 21:00 Non-Formulary Medication (Brimonidine Tartrate/Timolol (Combigan Eye Drops)) 5 ml BID OP ; Start 09/07/19 at 21:00; Status UNV Calcium/Vitamin D (Oscal D 500mg/ 200uts) 1 tab BIDWMEALS PO Last administered on 09/10/19 10:06; Start 09/08/19 at 08:00 Insulin Glargine (Lantus Syringe) 50 unit DAILY08 SQ Last administered on 09/10/19 10:45; Start 09/08/19 at 08:00 Insulin Human Lispro (HumaLOG) 20 units TIDWMEALS SQ Last administered on 09/10/19 10:13; Start 09/07/19 at 19:00 Metronidazole (Nydamax) 1 suyapa BID TP ; Start 09/07/19 at 21:00; Stop 09/08/19 at 04:48; Status DC Potassium Chloride (Klor-Con) 20 meq BIDWMEALS PO Last administered on 09/10/19 10:06; Start 09/08/19 at 08:00 Multivitamins (Thera M Plus) 1 tab DAILY PO Last administered on 09/10/19 10:06; Start 09/08/19 at 09:00 Insulin Human Lispro (HumaLOG) 0-9 UNITS TIDWMEALS SQ Last administered on 09/09/19 08:56; Start 09/08/19 at 08:00 Dextrose (Dextrose 50%-Water Syringe) 12.5 gm PRN Q15MIN PRN IV SEE COMMENTS; Start 09/07/19 at 19:30 Brimonidine Tartrate (Alphagan) 1 drop BID OU Last administered on 09/10/19 10:46; Start 09/07/19 at 21:00 Timolol Maleate (Timoptic 0.5% Ophth) 1 drop BID OU Last administered on 09/09/19 21:04; Start 09/07/19 at 21:00 Metronidazole (Nydamax) 1 suyapa PRN BID PRN TP DRY SKIN / SCALING Last administered on 09/08/19 21:51; Start 09/08/19 at 05:00 Lactobacillus Rhamnosus (Culturelle) 1 cap BID PO Last administered on 09/10/19 10:06; Start 09/08/19 at 21:00 Multivitamins/ Minerals (I-Jeffrey) 1 tab QHS PO Last administered on 09/09/19 21:03; Start 09/09/19 at 21:00 Active Scripts Active Reported Hair Regrowth Treatment (Minoxidil) 180 Ml Solution 180 Ml TP Metrocream (Metronidazole) 45 Gm Cream..g. 1 Suyapa TP BID Proair Hfa Inhaler (Albuterol Sulfate) 8.5 Gm Hfa.aer.ad 1 Puff INH PRN Q4-6HRS PRN Glucosamine & Chondroitin Cap (Gluc 2KCL/Chondr/Isra Hy/Hy Ac) 1 Each Capsule Each PO BID Calcium + Vitamin D Tablet (Calcium Carbonate/Vitamin D3) 1 Each Tablet 1 Each PO BID Centrum Silver Tablet (Multivits-Min/Fa/Lycopene/Lut) 1 Each Tablet 1 Each PO Combigan Eye Drops (Brimonidine Tartrate/Timolol) 5 Ml Drops 5 Ml OP BID Dorzolamide Hcl 10 Ml Drops 1 Drop EACHEYE BID Zioptan 0.0015% Eye Drops (Tafluprost/Pf) 1 Each Droperette 1 Each OP Potassium Chloride 20 Meq Tablet.er 20 Meq PO BID Furosemide 80 Mg Tablet 1 Tab PO DAILY Humalog (Insulin Lispro) 100 Unit/1 Ml Cartridge 20 Unit SQ TIDWMEALS Lantus Solostar (Insulin Glargine,Hum.rec.anlog) 100 Unit/1 Ml Insuln.pen 50 Unit SQ DAILY08 Lisinopril 10 Mg Tablet 1 Tab PO BID Amlodipine Besylate 5 Mg Tablet 5 Mg PO DAILY Vital Signs Vital Signs Date Time Temp Pulse Resp B/P (MAP) Pulse Ox O2 Delivery O2 Flow Rate FiO2 09/10/19 10:07 58 120/53 09/10/19 07:00 97.5 18 93 Room Air 97.5 Labs Laboratory Tests Test 09/08/19 17:00 09/08/19 21:23 09/09/19 08:13 09/09/19 11:53 Glucose (Fingerstick) 163 mg/dL (70-99) 71 mg/dL (70-99) 181 mg/dL (70-99) 82 mg/dL (70-99) Test 09/09/19 12:55 09/09/19 16:39 09/09/19 18:47 09/09/19 21:16 White Blood Count 8.3 x10^3/uL (4.0-11.0) Red Blood Count 4.54 x10^6/uL (3.50-5.40) Hemoglobin 12.5 g/dL (12.0-15.5) Hematocrit 38.1 % (36.0-47.0) Mean Corpuscular Volume 84 fL (79-100) Mean Corpuscular Hemoglobin 28 pg (25-35) Mean Corpuscular Hemoglobin Concent 33 g/dL (31-37) Red Cell Distribution Width 15.3 % (11.5-14.5) Platelet Count 112 x10^3/uL (140-400) Neutrophils (%) (Auto) 54 % (31-73) Lymphocytes (%) (Auto) 35 % (24-48) Monocytes (%) (Auto) 10 % (0-9) Eosinophils (%) (Auto) 2 % (0-3) Basophils (%) (Auto) 0 % (0-3) Neutrophils # (Auto) 4.5 x10^3/uL (1.8-7.7) Lymphocytes # (Auto) 2.9 x10^3/uL (1.0-4.8) Monocytes # (Auto) 0.8 x10^3/uL (0.0-1.1) Eosinophils # (Auto) 0.1 x10^3/uL (0.0-0.7) Basophils # (Auto) 0.0 x10^3/uL (0.0-0.2) Sodium Level 140 mmol/L (136-145) Potassium Level 4.1 mmol/L (3.5-5.1) Chloride Level 102 mmol/L (98-107) Carbon Dioxide Level 30 mmol/L (21-32) Anion Gap 8 (6-14) Blood Urea Nitrogen 23 mg/dL (7-20) Creatinine 1.1 mg/dL (0.6-1.0) Estimated GFR (Cockcroft-Gault) 48.4 BUN/Creatinine Ratio 21 (6-20) Glucose Level 99 mg/dL (70-99) Calcium Level 8.9 mg/dL (8.5-10.1) Total Bilirubin 0.7 mg/dL (0.2-1.0) Aspartate Amino Transf (AST/SGOT) 17 U/L (15-37) Alanine Aminotransferase (ALT/SGPT) 13 U/L (14-59) Alkaline Phosphatase 62 U/L (46-116) Total Protein 6.9 g/dL (6.4-8.2) Albumin 3.0 g/dL (3.4-5.0) Albumin/Globulin Ratio 0.8 (1.0-1.7) Glucose (Fingerstick) 51 mg/dL (70-99) 206 mg/dL (70-99) 172 mg/dL (70-99) Test 09/10/19 08:02 09/10/19 11:43 Glucose (Fingerstick) 176 mg/dL (70-99) 159 mg/dL (70-99) Laboratory Tests Test 09/09/19 12:55 09/09/19 16:39 09/09/19 18:47 09/09/19 21:16 White Blood Count 8.3 x10^3/uL (4.0-11.0) Red Blood Count 4.54 x10^6/uL (3.50-5.40) Hemoglobin 12.5 g/dL (12.0-15.5) Hematocrit 38.1 % (36.0-47.0) Mean Corpuscular Volume 84 fL (79-100) Mean Corpuscular Hemoglobin 28 pg (25-35) Mean Corpuscular Hemoglobin Concent 33 g/dL (31-37) Red Cell Distribution Width 15.3 % (11.5-14.5) Platelet Count 112 x10^3/uL (140-400) Neutrophils (%) (Auto) 54 % (31-73) Lymphocytes (%) (Auto) 35 % (24-48) Monocytes (%) (Auto) 10 % (0-9) Eosinophils (%) (Auto) 2 % (0-3) Basophils (%) (Auto) 0 % (0-3) Neutrophils # (Auto) 4.5 x10^3/uL (1.8-7.7) Lymphocytes # (Auto) 2.9 x10^3/uL (1.0-4.8) Monocytes # (Auto) 0.8 x10^3/uL (0.0-1.1) Eosinophils # (Auto) 0.1 x10^3/uL (0.0-0.7) Basophils # (Auto) 0.0 x10^3/uL (0.0-0.2) Sodium Level 140 mmol/L (136-145) Potassium Level 4.1 mmol/L (3.5-5.1) Chloride Level 102 mmol/L (98-107) Carbon Dioxide Level 30 mmol/L (21-32) Anion Gap 8 (6-14) Blood Urea Nitrogen 23 mg/dL (7-20) Creatinine 1.1 mg/dL (0.6-1.0) Estimated GFR (Cockcroft-Gault) 48.4 BUN/Creatinine Ratio 21 (6-20) Glucose Level 99 mg/dL (70-99) Calcium Level 8.9 mg/dL (8.5-10.1) Total Bilirubin 0.7 mg/dL (0.2-1.0) Aspartate Amino Transf (AST/SGOT) 17 U/L (15-37) Alanine Aminotransferase (ALT/SGPT) 13 U/L (14-59) Alkaline Phosphatase 62 U/L (46-116) Total Protein 6.9 g/dL (6.4-8.2) Albumin 3.0 g/dL (3.4-5.0) Albumin/Globulin Ratio 0.8 (1.0-1.7) Glucose (Fingerstick) 51 mg/dL (70-99) 206 mg/dL (70-99) 172 mg/dL (70-99) Test 09/10/19 08:02 09/10/19 11:43 Glucose (Fingerstick) 176 mg/dL (70-99) 159 mg/dL (70-99) Allergies Allergies Coded Allergies Type Severity Reaction Last Updated Verified No Known Drug Allergies 04/28/18 No Disposition/Orders: Other (D/C TO SNF) FILI WARD MD Sep 10, 2019 12:03
[2019-09-10] MEDS ORDERED: LEVO500T59 PO (12:06)
[2019-09-10] MEDS ORDERED: CALC200T23 PO (12:06)
[2019-09-10] MEDS ORDERED: LACT1CAP19 PO (12:06)
[2019-09-10] MEDS ORDERED: VIT1TABL8 PO (12:06)
--- NOTE | 2019-09-10 12:08 | SNU/HH DC ---
DISCHARGE ORDERS DISCHARGE INFORMATION: FINAL DIAGNOSIS Problems Medical Problems: (1) Generalized weakness Status: Acute CONDITION ON DISCHARGE: Stable CODE STATUS: Code Status: Full SHELTER: SNF STAY <30 DAYS: Yes HOSPICE: HOSPICE: No HOSPICE EVAL & TREAT: No LTAC: ADMIT TO LTAC: No POST DISCHARGE ORDERS: ACTIVITY ORDERS: Activity as tolerated DIET AFTER DISCHARGE: Cardiac CHECKS AFTER DISCHARGE: CHECKS AFTER DISCHARGE: Check blood press - daily TREATMENT/EQUIPMENT ORDERS: ADAPTIVE EQUIPMENT NEEDED: Front wheeled walker Physical Therapy For: Evalulation/Treatment Occupational Therapy For: Evaluation/Treatment Speech Language Pathology For: Evaluation/Treatment DISCHARGE MEDICATIONS: Home Meds Active Scripts Levofloxacin (LEVAQUIN) 500 Mg Tablet, 1 TAB PO DAILY for UTI for 7 Days, #7 TAB 0 Refills Prov:FILI WARD MD 09/10/19 Vit A,C & E/Lutein/Minerals (I-EVANGELIST TABLET) 1 Each Tablet, 1 TAB PO QHS for EYE SUPPLEMENT for 30 Days, #30 TAB Prov:FILI WARD MD 09/10/19 Lactobacillus Rhamnosus Gg (CULTURELLE) 1 Each Cap.sprink, 1 CAP PO BID for SUPPLEMENT for 30 Days, #60 CAP Prov:FILI WARD MD 09/10/19 Calcium Carbonate (CALCIUM CARBONATE) 200 Mg Tab.chew, 500 MG PO PRN AFTMEALHC PRN for INDIGESTION 1ST CHOICE for 10 Days, #30 TAB.CHEW Prov:FILI WARD MD 09/10/19 Reported Medications Minoxidil (HAIR REGROWTH TREATMENT) 180 Ml Solution, 180 ML TP, MISC 04/28/18 Metronidazole (METROCREAM) 45 Gm Cream..g., 1 MAGALY TP BID, #45 GM 04/28/18 Albuterol Sulfate (PROAIR HFA INHALER) 8.5 Gm Hfa.aer.ad, 1 PUFF INH PRN Q4-6HRS PRN for SHORTNESS OF BREATH, INHALER 0 Refills 04/28/18 Gluc 2KCL/Chondr/Isra Hy/Hy Ac (GLUCOSAMINE & CHONDROITIN CAP) 1 Each Capsule, EACH PO BID, CAP 04/28/18 Calcium Carbonate/Vitamin D3 (CALCIUM + VITAMIN D TABLET) 1 Each Tablet, 1 EACH PO BID, TAB 04/28/18 Multivits-Min/Fa/Lycopene/Lut (CENTRUM SILVER TABLET) 1 Each Tablet, 1 EACH PO, TAB 04/28/18 Brimonidine Tartrate/Timolol (COMBIGAN EYE DROPS) 5 Ml Drops, 5 ML OP BID, DROP 04/28/18 Dorzolamide Hcl (DORZOLAMIDE HCL) 10 Ml Drops, 1 DROP EACHEYE BID, #30 ML 3 Refills 04/28/18 Tafluprost/Pf (ZIOPTAN 0.0015% EYE DROPS) 1 Each Droperette, 1 EACH OP, DROP 04/28/18 Potassium Chloride (POTASSIUM CHLORIDE ) 20 Meq Tablet.er, 20 MEQ PO BID, TAB. SR 04/28/18 Furosemide (FUROSEMIDE) 80 Mg Tablet, 1 TAB PO DAILY, #30 TAB 5 Refills 04/28/18 Insulin Lispro (HUMALOG) 100 Unit/1 Ml Cartridge, 20 UNIT SQ TIDWMEALS, EACH 04/28/18 Insulin Glargine,Hum.rec.anlog (LANTUS SOLOSTAR) 100 Unit/1 Ml Insuln.pen, 50 UNIT SQ DAILY08, #15 ML 3 Refills 04/28/18 Lisinopril (LISINOPRIL) 10 Mg Tablet, 1 TAB PO BID, #30 TAB 5 Refills 04/28/18 Amlodipine Besylate (AMLODIPINE BESYLATE) 5 Mg Tablet, 5 MG PO DAILY, TAB 04/28/18 Discontinued Reported Medications Ipratropium/Albuterol Sulfate (DUONEB 0.5-3(2.5) MG/3 ML) 3 Ml Ampul.neb, 3 ML NEB TID, EACH 04/28/18 FILI WARD MD Sep 10, 2019 12:08
--- NOTE | 2019-09-10 12:54 | NUR ---
This RN administered 10 units of Humalog at lunch time. Pt was supposed to receive 24 units with a BS of 176, but she stated she "would like 10 as she only ate a salad, crackers, and a small amount of fruit, which wasn't enough carbs to need all of it."
--- NOTE | 2019-09-10 14:15 | PDOC ---
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 ROS - no fever Objective Objective Vital Signs Date Time Temp Pulse Resp B/P (MAP) Pulse Ox O2 Delivery O2 Flow Rate FiO2 09/10/19 12:24 94 Room Air 09/10/19 11:00 97.7 64 18 106/49 (68) 97.7 Intake and Output 09/10/19 07:00 Intake Total 1150 ml Balance 1150 ml Intake Oral 1150 ml # Voids 7 # Bowel Movements 1 Physical Exam Heart: Normal S1, Normal S2 General: Alert, Oriented X3 Lungs: Clear to auscultation, Normal air movement Neuro: Normal speech Psych/Mental Status: Mental status NL Assessment Assessment Problems Medical Problems: (1) Generalized weakness Status: Acute IMPRESSION AND PLAN: 1. 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 She has chronic thrombocytopenia since 2007 and she responded well to prednisone in 2007. However, her platelet counts have normalized in 2018 and now it is worse again, which could be because of underlying infection. She has urinary tract infection. I would recommend continued monitoring of her platelet count. I would expect gradual improvement. If her platelet count gets to below 30, then she will need treatment for idiopathic thrombocytopenia purpura. She does not want to take prednisone anymore for idiopathic thrombocytopenia purpura because of prior side effects and I will treat her with rituximab if she has recurrent idiopathic thrombocytopenia purpura with a platelet count of less than 30. No bleed. f/u with PCP upon discharge. 2. Urinary tract infection. Continue management per primary team. 3. Leukocytosis due to urinary tract infection, resolved. Comment Review of Relevant I have reviewed the following items heidi (where applicable) has been applied. Labs Laboratory Tests Test 09/08/19 17:00 09/08/19 21:23 09/09/19 08:13 09/09/19 11:53 Glucose (Fingerstick) 163 mg/dL (70-99) 71 mg/dL (70-99) 181 mg/dL (70-99) 82 mg/dL (70-99) Test 09/09/19 12:55 09/09/19 16:39 09/09/19 18:47 09/09/19 21:16 White Blood Count 8.3 x10^3/uL (4.0-11.0) Red Blood Count 4.54 x10^6/uL (3.50-5.40) Hemoglobin 12.5 g/dL (12.0-15.5) Hematocrit 38.1 % (36.0-47.0) Mean Corpuscular Volume 84 fL (79-100) Mean Corpuscular Hemoglobin 28 pg (25-35) Mean Corpuscular Hemoglobin Concent 33 g/dL (31-37) Red Cell Distribution Width 15.3 % (11.5-14.5) Platelet Count 112 x10^3/uL (140-400) Neutrophils (%) (Auto) 54 % (31-73) Lymphocytes (%) (Auto) 35 % (24-48) Monocytes (%) (Auto) 10 % (0-9) Eosinophils (%) (Auto) 2 % (0-3) Basophils (%) (Auto) 0 % (0-3) Neutrophils # (Auto) 4.5 x10^3/uL (1.8-7.7) Lymphocytes # (Auto) 2.9 x10^3/uL (1.0-4.8) Monocytes # (Auto) 0.8 x10^3/uL (0.0-1.1) Eosinophils # (Auto) 0.1 x10^3/uL (0.0-0.7) Basophils # (Auto) 0.0 x10^3/uL (0.0-0.2) Sodium Level 140 mmol/L (136-145) Potassium Level 4.1 mmol/L (3.5-5.1) Chloride Level 102 mmol/L (98-107) Carbon Dioxide Level 30 mmol/L (21-32) Anion Gap 8 (6-14) Blood Urea Nitrogen 23 mg/dL (7-20) Creatinine 1.1 mg/dL (0.6-1.0) Estimated GFR (Cockcroft-Gault) 48.4 BUN/Creatinine Ratio 21 (6-20) Glucose Level 99 mg/dL (70-99) Calcium Level 8.9 mg/dL (8.5-10.1) Total Bilirubin 0.7 mg/dL (0.2-1.0) Aspartate Amino Transf (AST/SGOT) 17 U/L (15-37) Alanine Aminotransferase (ALT/SGPT) 13 U/L (14-59) Alkaline Phosphatase 62 U/L (46-116) Total Protein 6.9 g/dL (6.4-8.2) Albumin 3.0 g/dL (3.4-5.0) Albumin/Globulin Ratio 0.8 (1.0-1.7) Glucose (Fingerstick) 51 mg/dL (70-99) 206 mg/dL (70-99) 172 mg/dL (70-99) Test 09/10/19 08:02 09/10/19 11:43 Glucose (Fingerstick) 176 mg/dL (70-99) 159 mg/dL (70-99) Laboratory Tests Test 09/09/19 16:39 09/09/19 18:47 09/09/19 21:16 09/10/19 08:02 Glucose (Fingerstick) 51 mg/dL (70-99) 206 mg/dL (70-99) 172 mg/dL (70-99) 176 mg/dL (70-99) Test 09/10/19 11:43 Glucose (Fingerstick) 159 mg/dL (70-99) Microbiology 09/07/19 Blood Culture - Preliminary, Resulted NO GROWTH AFTER 2 DAYS 09/07/19 Urine Culture - Final, Complete 09/07/19 Urine Culture Result 1 (JARET) - Final, Complete 09/07/19 Antimicrobic Susceptibility - Final, Complete Medications Current Medications Ceftriaxone Sodium (Rocephin) 1 gm 1X STAT IVP Last administered on 09/07/19at 18:31; Start 09/07/19 at 18:04; Stop 09/07/19 at 18:07; Status DC Sodium Chloride 500 ml @ 500 mls/hr 1X STAT IV Last administered on 09/07/19at 18:35; Start 09/07/19 at 18:28; Stop 09/07/19 at 19:27; Status DC Ondansetron HCl (Zofran) 4 mg PRN Q8HRS PRN IV NAUSEA/VOMITING; Start 09/07/19 at 19:00; Stop 09/07/19 at 19:28; Status DC Sodium Chloride 500 ml @ 500 mls/hr 1X STAT IV Last administered on 09/07/19at 22:57; Start 09/07/19 at 18:49; Stop 09/07/19 at 19:48; Status DC Ceftriaxone Sodium (Rocephin) 1 gm Q24H IVP Last administered on 09/09/19 17:19; Start 09/08/19 at 18:00 Ondansetron HCl (Zofran) 4 mg PRN Q6HRS PRN IVP NAUSEA/VOMITING 1ST CHOICE; Start 09/07/19 at 19:30 Temazepam (Restoril) 7.5 mg PRN QHS PRN PO INSOMNIA Last administered on 09/07/19 22:41; Start 09/07/19 at 19:30 Calcium Carbonate/ Glycine (Tums) 500 mg PRN AFTMEALHC PRN PO INDIGESTION 1ST CHOICE; Start 09/07/19 at 19:30 Albuterol Sulfate (Ventolin Neb Soln) 2.5 mg PRN QID PRN INH SHORTNESS OF BREATH; Start 09/07/19 at 19:30; Stop 09/09/19 at 10:58; Status DC Amlodipine Besylate (Norvasc) 5 mg DAILY PO Last administered on 09/10/19 10:06; Start 09/08/19 at 09:00 Dorzolamide HCl (Trusopt) 1 drop BID OU Last administered on 09/10/19 10:46; Start 09/07/19 at 21:00 Furosemide (Lasix) 80 mg DAILY PO Last administered on 09/10/19 10:07; Start 09/08/19 at 09:00 Albuterol/ Ipratropium (Duoneb) 3 ml TID NEB Last administered on 09/08/19 12:54; Start 09/07/19 at 21:00; Stop 09/09/19 at 10:58; Status DC Lisinopril (Prinivil) 10 mg BID PO Last administered on 09/10/19 10:07; Start 09/07/19 at 21:00 Non-Formulary Medication (Brimonidine Tartrate/Timolol (Combigan Eye Drops)) 5 ml BID OP ; Start 09/07/19 at 21:00; Status UNV Calcium/Vitamin D (Oscal D 500mg/ 200uts) 1 tab BIDWMEALS PO Last administered on 09/10/19 10:06; Start 09/08/19 at 08:00 Insulin Glargine (Lantus Syringe) 50 unit DAILY08 SQ Last administered on 09/10/19 10:45; Start 09/08/19 at 08:00 Insulin Human Lispro (HumaLOG) 20 units TIDWMEALS SQ Last administered on 09/10/19 12:54; Start 09/07/19 at 19:00 Metronidazole (Nydamax) 1 suyapa BID TP ; Start 09/07/19 at 21:00; Stop 09/08/19 at 04:48; Status DC Potassium Chloride (Klor-Con) 20 meq BIDWMEALS PO Last administered on 09/10/19 10:06; Start 09/08/19 at 08:00 Multivitamins (Thera M Plus) 1 tab DAILY PO Last administered on 09/10/19 10:06; Start 09/08/19 at 09:00 Insulin Human Lispro (HumaLOG) 0-9 UNITS TIDWMEALS SQ Last administered on 09/09/19 08:56; Start 09/08/19 at 08:00 Dextrose (Dextrose 50%-Water Syringe) 12.5 gm PRN Q15MIN PRN IV SEE COMMENTS; Start 09/07/19 at 19:30 Brimonidine Tartrate (Alphagan) 1 drop BID OU Last administered on 09/10/19 10:46; Start 09/07/19 at 21:00 Timolol Maleate (Timoptic 0.5% [facility]) 1 drop BID OU Last administered on 09/09/19 21:04; Start 09/07/19 at 21:00 Metronidazole (Nydamax) 1 suyapa PRN BID PRN TP DRY SKIN / SCALING Last administered on 09/08/19 21:51; Start 09/08/19 at 05:00 Lactobacillus Rhamnosus (Culturelle) 1 cap BID PO Last administered on 09/10/19at 10:06; Start 09/08/19 at 21:00 Multivitamins/ Minerals (I-Jeffrey) 1 tab QHS PO Last administered on 09/09/19 21:03; Start 09/09/19 at 21:00 Active Scripts Active Levaquin (Levofloxacin) 500 Mg Tablet 1 Tab PO DAILY 7 Days I-Jeffrey Tablet (Vit A,C & E/Lutein/Minerals) 1 Each Tablet 1 Tab PO QHS 30 Days Culturelle (Lactobacillus Rhamnosus Gg) 1 Each Cap.sprink 1 Cap PO BID 30 Days Calcium Carbonate 200 Mg Tab.chew 500 Mg PO PRN AFTMEALHC PRN 10 Days Reported Hair Regrowth Treatment (Minoxidil) 180 Ml Solution 180 Ml TP Metrocream (Metronidazole) 45 Gm Cream..g. 1 Suyapa TP BID Proair Hfa Inhaler (Albuterol Sulfate) 8.5 Gm Hfa.aer.ad 1 Puff INH PRN Q4-6HRS PRN Glucosamine & Chondroitin Cap (Gluc 2KCL/Chondr/Isra Hy/Hy Ac) 1 Each Capsule Each PO BID Calcium + Vitamin D Tablet (Calcium Carbonate/Vitamin D3) 1 Each Tablet 1 Each PO BID Centrum Silver Tablet (Multivits-Min/Fa/Lycopene/Lut) 1 Each Tablet 1 Each PO Combigan Eye Drops (Brimonidine Tartrate/Timolol) 5 Ml Drops 5 Ml OP BID Dorzolamide Hcl 10 Ml Drops 1 Drop EACHEYE BID Zioptan 0.0015% Eye Drops (Tafluprost/Pf) 1 Each Droperette 1 Each OP Potassium Chloride (Potassium Chloride) 20 Meq Tablet.er 20 Meq PO BID Furosemide 80 Mg Tablet 1 Tab PO DAILY Humalog (Insulin Lispro) 100 Unit/1 Ml Cartridge 20 Unit SQ TIDWMEALS Lantus Solostar (Insulin Glargine,Hum.rec.anlog) 100 Unit/1 Ml Insuln.pen 50 Unit SQ DAILY08 Lisinopril 10 Mg Tablet 1 Tab PO BID Amlodipine Besylate 5 Mg Tablet 5 Mg PO DAILY Vitals/I & O Vital Sign - Last 24 Hours 09/09/19 09/09/19 09/09/19 09/09/19 15:00 19:00 20:00 21:04 Temp 97.8 97.8 97.8 97.8 Pulse 72 74 74 Resp 16 20 B/P (MAP) 92/48 (63) 143/69 (93) 144/84 Pulse Ox 95 95 O2 Delivery Room Air Room Air 09/09/19 09/10/19 09/10/19 09/10/19 23:00 03:00 07:00 10:06 Temp 98.2 98.0 97.5 98.2 98.0 97.5 Pulse 78 77 58 58 Resp 20 18 18 B/P (MAP) 136/77 (96) 135/64 (87) 120/53 (75) 120/53 Pulse Ox 94 95 93 O2 Delivery Room Air 09/10/19 09/10/19 09/10/19 10:07 11:00 12:24 Temp 97.7 97.7 Pulse 58 64 Resp 18 B/P (MAP) 120/53 106/49 (68) Pulse Ox 95 94 O2 Delivery Room Air Room Air Intake and Output 09/09/19 09/09/19 09/10/19 15:00 23:00 07:00 Intake Total 750 ml 400 ml Balance 750 ml 400 ml GINA EAGLE MD Sep 10, 2019 14:15
--- NOTE | 2019-09-10 14:50 | NUR ---
SW following pt. SW extensively discussed with pt and pt's , Scott regarding SNU. Pt was wanting to go home but pt's is unable to help her with ADL's until she is able to get her strength back. Pt then agreeable with [facility]. Orders faxed to [facility] and SW arranged transport via [facility] between [id number]. RN notified, packet on chart. Left a VM to pt's regarding dc time and also requested he bring her eye drops to [facility].
[2019-09-10 15:00] VITALS: BP 125/47
--- NOTE | 2019-09-10 15:53 | NUR ---
Pt left unit at approx 1545 by wheelchair via transportation. Pt IV removed with no complications. Report called to RAJEEV Serrato at [facility]. Pt stable upon discharge.
== END 2019-09-10 16:05 | DRG 872 ==
LOC: ER 16:51 → 5 SOUTH 18:27
PROVIDERS: ADMIT Internal Medicine; ATTEND Internal Medicine
DX: A41.9 Sepsis, unspecified organism (principal); N39.0 Urinary tract infection, site not specified; D69.3 Immune thrombocytopenic purpura; Z68.42 Body mass index [BMI] 45.0-49.9, adult; B96.20 Unspecified Escherichia coli [E. coli] as the cause of diseases classified elsewhere; D69.59 Other secondary thrombocytopenia; E66.9 Obesity, unspecified; I10 Essential (primary) hypertension; J44.9 Chronic obstructive pulmonary disease, unspecified; Z82.49 Family history of ischemic heart disease and other diseases of the circulatory system; Z85.42 Personal history of malignant neoplasm of other parts of uterus; Z87.440 Personal history of urinary (tract) infections
CPT/HCPCS: 36415; 71045; 76700; 80048; 80053; 81001; 82962; 83036; 83605; 83735; 85025; 87040; 87086; 87186; 94640; 94760; 96361; 96374; J0696; J1815; J7040; J7620; P9612; 97110; 97116; 97530; 97535; 99285-25; G0378

== ENCOUNTER → 2019-12-08 | Outpatient (CLI) | payer MEDICARE, OTHER ==
[~2019-12-08] MED LIST changes: +CALC200T23 PO; +LACT1CAP19 PO; +LEVO500T59 PO; +VIT1TABL8 PO
--- NOTE | 2019-12-08 12:25 | CARD ---
MR#: [id number] Date of Study: 12/08/2019 Ordering Physician: HANH TOUSSAINT, Referring Physician: HANH TOUSSAINT, Tech: Glen Sotelo RDCS APPROVED REPORT EXAM: Two-dimensional and M-mode echocardiogram with Doppler and color Doppler. Other Information Quality : AverageHR: 60bpm Rhythm : NSRTechnically limited study due to body habitus. INDICATION Leg pain, edema RISK FACTORS Hypertension Diabetes 2D DIMENSIONS RVDd4.2 (2.9-3.5cm)Left Atrium(2D)4.1 (1.6-4.0cm) IVSd1.1 (0.7-1.1cm)Aortic Root(2D)2.7 (2.0-3.7cm) LVDd4.4 (3.9-5.9cm)LVOT Diameter2.0 (1.8-2.4cm) PWd1.2 (0.7-1.1cm)LVDs2.8 (2.5-4.0cm) FS (%) 36.1 %SV59.2 ml LVEF(%)65.9 (>50%) Aortic Valve AoV Peak Eduardo.242.2cm/sAoV VTI59.4cm AO Peak GR.23.5mmHgLVOT Peak Eduarod.122.7cm/s AO Mean GR.11mmHgAVA (VMAX)1.54cm2 Mitral Valve MV E Brtdkbhq75.3cm/sMV DECEL [id number] MV A Imwltdpb467.5cm/sE/A Ratio0.6 MV A [id number] Pulmonary Valve PV Peak Bzbftyyv275.7cm/s Tricuspid Valve TR P. Gfuphbud427sq/sRAP [id number] TR Peak Gr.52hjAiQMWY34idVe Pulmonary Vein S1 Bwxwewvv12.5cm/sD2 Nswhmpbg53.0cm/s PVa olqyxodb706pykf LEFT VENTRICLE The left ventricle is normal size. There is borderline to mild concentric left ventricular hypertroph y. The left ventricular systolic function is normal. The Ejection Fraction is 55%. There is normal LV segmental wall motion. Transmitral Doppler flow pattern is Grade I-abnormal relaxation pattern. Ther e is no ventricular septal defect visualized. RIGHT VENTRICLE The right ventricle is normal size. The right ventricular systolic function is normal. ATRIA The left atrium size is normal. The right atrium size is normal. The interatrial septum is intact wit h no evidence for an atrial septal defect or patent foramen ovale as noted on 2-D or Doppler imaging. AORTIC VALVE The aortic valve is mildly calcified. Doppler and Color Flow revealed trace aortic regurgitation. Mil d aortic valve stenosis. Calculated aortic valve area is 1.7 cm2 with maximum pressure gradient of 24 mmHg and mean pressure gradient of 11 mmHg. MITRAL VALVE Mitral annular calcification is mild. There is no mitral valve stenosis. Doppler and Color-flow revea led trace mitral regurgitation. TRICUSPID VALVE The tricuspid valve is normal in structure and function. Doppler and Color Flow revealed trace tricus pid regurgitation. PA pressure is estimated at 26 mmHg. There is no tricuspid valve stenosis. PULMONIC VALVE The pulmonary valve is normal in structure and function. Doppler and Color Flow revealed no pulmonic valvular regurgitation. There is no pulmonic valvular stenosis. GREAT VESSELS The aortic root is normal in size. The ascending aorta is normal in size. The pulmonary artery is nor mal. The IVC is normal in size and collapses >50% with inspiration. PERICARDIAL EFFUSION There is no evidence of significant pericardial effusion. Critical Notification Critical Value: No <Conclusion> The left ventricular systolic function is normal. The Ejection Fraction is 55%. There is normal LV segmental wall motion. Transmitral Doppler flow pattern is Grade I-abnormal relaxation pattern. Mild aortic valve stenosis. Trace mitral regurgitation. Trace tricuspid regurgitation. PA pressure is estimated at 26 mmHg. There is no evidence of significant pericardial effusion. Signed by : Hanh Toussaint, Electronically Approved : 12/08/2019 12:24:37
--- NOTE | 2019-12-09 09:15 | RAD ---
MR#: [id number] Date of Study: 12/08/2019 Ordering Physician: HANH GILBERT, Referring Physician: HANH GILBERT, Tech: Matias Gomez MBA, RDMS, RVT, RDCS, RTR APPROVED REPORT Patient Location : OUT-PATIENT Indications Lower Extremity Edema : Bilateral Greater Saphenous Veins (GSV) Significant venous relux noted in the LEFT GSV at the following levels : Superficial Femoral Junction , Proximal Thigh, Mid Thigh, Distal Thigh, Proximal Calf, Mid Calf, Distal Calf Findings Grayscale images of the bilateral saphenofemoral junctions are grossly unremarkable. The right great saphenous vein measures 7.3 mm and does not show any evidence of reflux. The left great saphenous vein measures 8.1 mm and has a maximum reflux time of 3.7 seconds. Bilateral lesser saphenous veins do not show any evidence of reflux. Critical Notification Critical Value: No <Conclusion> 1. Positive for reflux in the left great saphenous vein. Signed by : Garrett Knutson, Electronically Approved : 12/09/2019 09:14:27
--- NOTE | 2019-12-09 09:28 | RAD ---
MR#: [id number] Date of Study: 12/08/2019 Ordering Physician: HANH GILBERT, Referring Physician: HANH GILBERT, Tech: Matias Gomez MBA, RDMS, RVT, RDCS, RTR APPROVED REPORT Patient Location: OUT-PATIENT Indications Edema Grayscale images of the right lower extremity arterial vessels reveals mild diffuse intimal hyperplas ia and plaque. Normal velocities are noted from the common femoral artery to the popliteal segment. W aveforms are mostly biphasic. Below the knee there are monophasic waveforms. The posterior tibial art chema is patent without any focal disease. Peroneal artery is not visualized. The anterior tibial arter y likely has diffuse significant disease of greater than 75%. Monophasic waveforms in the left common femoral artery are noted with moderate to severe diffuse plaq ue throughout the left lower extremity arterial course. Monophasic waveforms with elevated velocities are noted in the mid to distal superficial femoral artery suggestive of greater than 75% stenosis. B elow the knee there are severely diminished waveforms suggestive of diffuse disease and this may also be more reflective of proximal disease in the SFA. VELOCITY AND DOPPLER WAVEFORM ANALYSIS RIGHT cm/secWaveformSeverity LEFT cm/secWaveform Severity dCFA 63.0BiphasicdCFA 121.0Monophasic Prof Fem Art. 60.0BiphasicProf Fem Art. 50.0Biphasic Fem Art Prox. 122.0BiphasicFem Art Prox. 104.0Monophasic Fem Art Mid. 94.0BiphasicFem Art Mid. 303.0Monophasic Fem Art Dist. 83.0BiphasicFem Art Dist. 173.0Monophasic Pop Art(Fossa) 86.0MonophasicPop Art(AK) 172.0Monophasic RESEARCH SPECIALIST Prox. 52.0MonophasicPTA Prox. 15.0Monophasic RESEARCH SPECIALIST Dist. 47.0MonophasicPTA Dist. Occluded DANIAL Prox. 18.0MonophasicATA Prox. 22.0Monophasic DPA 16MonophasicDPA 18Monophasic Image Critical Notification Critical Value: No <Conclusion> 1. Moderate below-knee right-sided disease and severe above and below-knee left-sided disease as desc ribed above. Signed by : Garrett Knutson, Electronically Approved : 12/09/2019 09:28:11
== END | disposition home or self-care (01) ==
LOC: ECHO 10:25
PROVIDERS: ATTEND Internal Medicine Cardiovascular Disease
DX: I08.0 Rheumatic disorders of both mitral and aortic valves (principal); I70.203 Unspecified atherosclerosis of native arteries of extremities, bilateral legs; M79.606 Pain in leg, unspecified; R60.0 Localized edema
CPT/HCPCS: 93306; 93925; 93970

== ENCOUNTER → 2021-03-14 | Outpatient (CLI) | payer MEDICARE, OTHER ==
[~2021-03-14] MED LIST changes: +AMLO-186 PO; -AMLO5TAB10 PO; +LISI10TA16 PO; -LISI10TA2 PO
--- NOTE | 2021-03-14 16:12 | CARD ---
MR#: [id number] Date of Study: 03/14/2021 Ordering Physician: HANH TOUSSAINT, Referring Physician: Nahid RAMIREZ: Will Duran [facility] APPROVED REPORT EXAM: Two-dimensional and M-mode echocardiogram with Doppler and color Doppler. Other Information Quality : FairHR: 73bpm Rhythm : NSR INDICATION Hypertension/HCVD RISK FACTORS Hypertension 2D DIMENSIONS Left Atrium(2D)3.8 (1.6-4.0cm)IVSd1.2 (0.7-1.1cm) Aortic Root(2D)2.8 (2.0-3.7cm)LVDd5.0 (3.9-5.9cm) LVOT Diameter1.8 (1.8-2.4cm)PWd1.1 (0.7-1.1cm) LVDs3.4 (2.5-4.0cm)FS (%) 31.3 % SV69.4 mlLVEF(%)58.9 (>50%) Aortic Valve AoV Peak Eduardo.268.2cm/sAoV VTI56.9cm AO Peak GR.28.8mmHgLVOT Peak Eduardo.120.4cm/s AO Mean GR.18mmHgAVA (VMAX)1.18cm2 Mitral Valve MV E Fyulaugx07.6cm/sMV E Peak Gr.8mmHg MV DECEL [id number] A Ozxpswll250.8cm/s MV E Mean Gr.3mmHgE/A Ratio0.7 Pulmonary Valve PV Peak Eddsxkrx107.8cm/s Tricuspid Valve TR P. Qlzrvvij183wx/sTR Peak Gr.34mmHg Pulmonary Vein S1 Umkzzdgq86.4cm/sD2 Rbhtkhrc31.6cm/s LEFT VENTRICLE The left ventricle is normal size. There is mild concentric left ventricular hypertrophy. The left ve ntricular systolic function is normal. The ejection fraction is 55-60%. There is normal LV segmental wall motion. Transmitral Doppler flow pattern is Grade I-abnormal relaxation pattern. No left ventric le thrombus noted on this study. There is no ventricular septal defect visualized. RIGHT VENTRICLE The right ventricle is normal size. There is normal right ventricular wall thickness. The right ventr icular systolic function is normal. ATRIA The left atrium size is normal. The right atrium size is normal. The interatrial septum is intact wit h no evidence for an atrial septal defect or patent foramen ovale as noted on 2-D or Doppler imaging. AORTIC VALVE The aortic valve is calcified and displays decreased opening. Doppler and Color Flow revealed trace a ortic regurgitation. There is mild to moderate valvular aortic stenosis. There is no aortic valvular vegetation. MITRAL VALVE The mitral valve is normal in structure and function. There is no evidence of mitral valve prolapse. There is no mitral valve stenosis. Doppler and Color-flow revealed trace mitral regurgitation. TRICUSPID VALVE The tricuspid valve is normal in structure and function. Doppler and Color Flow revealed trace tricus pid regurgitation. There is no tricuspid valve prolapse or vegetation. There is no tricuspid valve st enosis. PULMONIC VALVE The pulmonary valve is normal in structure and function. Doppler and Color Flow revealed no pulmonic valvular regurgitation. There is no pulmonic valvular stenosis. GREAT VESSELS The aortic root is normal in size. The ascending aorta is normal in size. The pulmonary artery is nor mal. PERICARDIAL EFFUSION There is no pleural effusion. There is no evidence of significant pericardial effusion. Critical Notification Critical Value: No <Conclusion> The left ventricular systolic function is normal. The ejection fraction is 55-60%. There is normal LV segmental wall motion. Transmitral Doppler flow pattern is Grade I-abnormal relaxation pattern. Mild to moderate valvular aortic stenosis. Trace mitral regurgitation. Trace tricuspid regurgitation. There is no evidence of significant pericardial effusion. Signed by : Hanh Toussaint, Electronically Approved : 03/14/2021 16:12:07
== END ==
LOC: ECHO 13:35
PROVIDERS: ATTEND Internal Medicine Cardiovascular Disease
DX: I35.1 Nonrheumatic aortic (valve) insufficiency (principal); I11.9 Hypertensive heart disease without heart failure
CPT/HCPCS: 93306